=== PATIENT | female | born 1985 | race Caucasian/White ===

== ENCOUNTER 2017-01-31 22:28 | Inpatient (IN) | payer OTHER ==
[~2017-01-31] VITALS: Ht 157.5 cm; Wt 54.4 kg
[~2017-01-31 22:28] MED LIST: BANZ400T PO; BENZ1TAB PO; CLOB1SUS PO; DEPA250T2 PO; DOCU1CAP39 PO; HALO10 PO; LAMO100 PO; LEVE500 PO; LEVO PO; LORA2CON2 PO; OYST500T25 PO; SEASTAB2 PO; TAB-TAB PO
[2017-01-31 22:45] VITALS: BP 108/73; PULSE 106; RESP 20; O2SAT 96
[2017-01-31 23:05] VITALS: TEMP 98.3
[2017-01-31] MEDS ORDERED: SODIUM CHLOR 0.9% 1000 ML INJ 1,000 ML IV ONE ×2 (23:45)
--- NOTE | 2017-01-31 23:54 | RADRPT ---
EXAM DATE/TIME: 01/31/2017 23:27 [facility] COMPARISON: No previous studies available for comparison. INDICATIONS : Shortness of breath. MEDICAL HISTORY : None. SURGICAL HISTORY : None. ENCOUNTER: Initial ACUITY: 1 day PAIN SCORE: Non-responsive. LOCATION: Bilateral chest FINDINGS: There appears to be mild parenchymal opacity in the lung bases. Accounting for rotation, cardiomedias tinal contours appear satisfactory. A wafer machine operator apparatus overlies the left chest. There is mod erate gaseous distention of colon which extends into the subdiaphragmatic region on the right. CONCLUSION: Mild basilar parenchymal opacities Irving Chase MD on January 31, 2017 at 23:51 Board Certified Radiologist. This report was verified electronically.
--- NOTE | 2017-01-31 23:54 | RADRPT ---
EXAM DATE/TIME: 01/31/2017 23:27 [facility] COMPARISON: No previous studies available for comparison. INDICATIONS : Shortness of breath. MEDICAL HISTORY : None. SURGICAL HISTORY : None. ENCOUNTER: Initial ACUITY: 1 day PAIN SCORE: Non-responsive. LOCATION: Bilateral chest FINDINGS: There appears to be mild parenchymal opacity in the lung bases. Accounting for rotation, cardiomedias tinal contours appear satisfactory. A denture waxer apparatus overlies the left chest. There is mod erate gaseous distention of colon which extends into the subdiaphragmatic region on the right. CONCLUSION: Mild basilar parenchymal opacities Irving Chase MD on January 31, 2017 at 23:51 Board Certified Radiologist. This report was verified electronically.
--- NOTE | 2017-01-31 23:54 | RADRPT ---
EXAM DATE/TIME: 01/31/2017 23:27 [facility] COMPARISON: No previous studies available for comparison. INDICATIONS : Shortness of breath. MEDICAL HISTORY : None. SURGICAL HISTORY : None. ENCOUNTER: Initial ACUITY: 1 day PAIN SCORE: Non-responsive. LOCATION: Bilateral chest FINDINGS: There appears to be mild parenchymal opacity in the lung bases. Accounting for rotation, cardiomedias tinal contours appear satisfactory. A rnp apparatus overlies the left chest. There is mod erate gaseous distention of colon which extends into the subdiaphragmatic region on the right. CONCLUSION: Mild basilar parenchymal opacities Irving Chase MD on January 31, 2017 at 23:51 Board Certified Radiologist. This report was verified electronically.
[2017-02-01] VITALS (8 sets, daily range): BP systolic 87–105; BP diastolic 51–64; PULSE 92–118; RESP 16–28; TEMP 97.4–98.6; O2SAT 93–99
[2017-02-01] MEDS ORDERED: IOHEXOL 350 MG/ML 10 ML VIAL (for RAD DIAG) IVCONTRAST ONE ×2 (00:27)
[2017-02-01 00:41] LABS: BASOPHIL % 0.1 % (0.0-2.0); EOSINOPHIL % 0.4 % (0.0-4.0); HEMATOCRIT 34.1 % (35.0-46.0); HEMOGLOBIN 11.9 GM/DL (11.6-15.3); LYMPH % 10.3 % (9.0-44.0); LYMPHOCYTE # 0.9 TH/MM3 (1.0-4.8); MEAN CELL VOLUME 107.4 FL (80.0-100.0); MEAN CORPUSCULAR HEMOGLOBIN 37.6 PG (27.0-34.0); MONO % 28.7 % (0.0-8.0); MONOCYTE # 2.4 TH/MM3 (0-0.9); NEUT % 60.5 % (16.0-70.0); PLATELET COUNT 243 TH/MM3 (150-450); RED BLOOD COUNT 3.17 MIL/MM3 (4.00-5.30); RED CELL DISTRIBUTION WIDTH 14.7 % (11.6-17.2); WHITE BLOOD COUNT 8.3 TH/MM3 (4.0-11.0)
[2017-02-01 00:43] LABS: AMORPHOUS SEDIMENT, URINE RARE; BACTERIA, URINE MANY /hpf; BILIRUBIN, URINE NEG (NEG); BLOOD, URINE MOD (NEG); GLUCOSE,URINE NEG (NEG); KETONE, URINE TRACE mg/dL (NEG); NITRITE,URINE NEG (NEG); URINE COLOR DARK-YELLOW (YELLW/STRAW); URINE LEUKOCYTE ESTERASE LARGE (NEG)
[2017-02-01 00:58] LABS: LACTIC ACID SEPSIS PROTOCOL 2.5 mmol/L (0.4-2.0)
[2017-02-01 01:01] LABS: ALBUMIN 1.4 GM/DL (3.4-5.0); BICARBONATE 22.1 MEQ/L (21.0-32.0); CALCIUM 5.5 MG/DL (8.5-10.1); CREATININE 0.75 MG/DL (0.50-1.00); TOTAL BILIRUBIN ADULT 0.5 MG/DL (0.2-1.0); TOTAL PROTEIN 5.5 GM/DL (6.4-8.2)
--- NOTE | 2017-02-01 01:04 | RADRPT ---
EXAM DATE/TIME: 02/01/2017 00:25 [facility] COMPARISON: No previous studies available for comparison. INDICATIONS : Abdominal pain and distention. IV CONTRAST: 70 cc Omnipaque 350 (iohexol) IV ORAL CONTRAST: No oral contrast ingested. RADIATION DOSE: 11.33 CTDIvol (mGy) MEDICAL HISTORY : Non-responsive. SURGICAL HISTORY : Non-responsive. ENCOUNTER: Initial ACUITY: 1 day PAIN SCALE: Non-responsive LOCATION: abdomen TECHNIQUE: Volumetric scanning of the abdomen and pelvis was performed. Using automated exposure control and ad justment of the mA and/or kV according to patient size, radiation dose was kept as low as reasonably achievable to obtain optimal diagnostic quality images. DICOM format image data is available electro nically for review and comparison. FINDINGS: LOWER LUNGS: Chronic appearing consolidative changes in the posterior lung bases bilaterally, left worse than righ t. LIVER: Homogeneous density without lesion. There is no dilation of the biliary tree. No calcified gallston es. SPLEEN: Normal size without lesion. PANCREAS: Within normal limits. KIDNEYS: Normal in size and shape. There is no mass, stone or hydronephrosis. ADRENAL GLANDS: Within normal limits. VASCULAR: There is no aortic aneurysm. BOWEL/MESENTERY: Gastrostomy tube in good position. Colon is interposed between the liver and right diaphragm. The pro ximal colon is mildly dilated which may be a chronic appearance. No evidence of wall thickening. Grad ual tapering into the distal transverse region. Normal caliber distal colon. Small bowel is nondilate d. The appendix is seen and appears normal. ABDOMINAL WALL: Within normal limits. RETROPERITONEUM: There is no lymphadenopathy. BLADDER: Decompressed with Mix catheter. REPRODUCTIVE: Within normal limits. INGUINAL: There is no lymphadenopathy or hernia. MUSCULOSKELETAL: Prominent lumbar scoliosis CONCLUSION: Chronic consolidative changes in the lung bases. Mild proximal colonic distention may be a chronic appearance. No definite acute CT findings. Irving Chase MD on February 01, 2017 at 0:55 Board Certified Radiologist. This report was verified electronically.
[2017-02-01 01:05] LABS: CALCIUM-PROTEIN CORRECTED 6.2 MG/DL (8.5-10.1)
[2017-02-01] MEDS ORDERED: cefTRIAXone INJ 1,000 MG in SODIUM CHLORIDE 0.9% INJ 100 ML IV ONE ×4 (01:15)
[2017-02-01] MEDS ORDERED: SODIUM CHLOR 0.9% 1000 ML INJ 1,000 ML IV ONE ×2 (01:15)
[2017-02-01 01:18] LABS: BANDS 39 % (0-6); LYMPHOCYTES 12 % (9-44); MONOCYTES 24 % (0-8); MYELOCYTES 1 % (0-0); NEUTROPHIL # MANUAL DIFF 5.1 TH/MM3 (1.8-7.7); POLYS (SEG NEUTROPHILS) 22 % (16-70)
[2017-02-01 01:20] LABS: TOXIC VACUOLATION PRESENT (NONE SEEN)
[2017-02-01] MEDS ORDERED: NALOXONE HCL 0.4 MG/ML AMP IV PUSH PRN ×2 (01:45)
[2017-02-01] MEDS ORDERED: LACTULOSE SYRUP 20 GM/30 ML CUP PO PRN ×2 (01:45)
[2017-02-01] MEDS ORDERED: BISACODYL 10 MG SUPP RECTAL PRN ×2 (01:45)
[2017-02-01] MEDS ORDERED: ONDANSETRON HCL 4 MG/2 ML VIAL IVP PRN ×2 (01:45)
[2017-02-01] MEDS ORDERED: SODIUM CHLORIDE 0.9% FLUSH 10 ML FLUSH IV FLUSH PRN ×2 (01:45)
[2017-02-01] MEDS ORDERED: SENNOSIDES 8.6 MG TAB PO PRN ×2 (01:45)
[2017-02-01] MEDS ORDERED: MAGNESIUM HYDROXIDE SUSP 30 ML CUP PO PRN ×2 (01:45)
--- NOTE | 2017-02-01 01:53 | PD ---
HPI Chief Complaint: Respiratory Symptoms Time Seen by Provider: 23:05 Travel History International Travel<30 days: No Contact w/Intl Traveler<30days: No Traveled to known affect area: No History of Present Illness HPI 31-year-old female multiple medical problems idiopathic mental retardation arrives from [facility] due to edema. Chaperoned reports the patient has chronic edema however slightly worse and now involving the arms. He evidently the work of breathing was increased as well and a tightness in the abdomen was observed by staff first noticed 3 days prior. Patient is nonverbal limiting history. PFSH Past Medical History Developmental Delay: Yes (PROFOUND INTELLECTUAL DISABILITY) Diminished Hearing: No Musculoskeletal: Yes (BURITIS R ELBOW, PATELLAR SUBLUX) Neurologic: Yes (MR,) Psychiatric: Yes (BEHAVIORAL, IMPULSE CONTROL DISORDER) Seizures: Yes ?: Not Past Surgical History Oral Surgery: Yes Other Surgery: Yes (G TUBE) Social History Alcohol Use: No Tobacco Use: No Substance Use: No Allergies-Medications (Allergen,Severity, Reaction): Coded Allergies: nitrofurantoin (Unverified Allergy, Unknown, 01/31/17) Reported Meds & Prescriptions Reported Meds & Active Scripts Active Reported Banzel (Rufinamide) 400 Mg Tab 400 Mg PO Oyster Shell 500 Mg Tab 500 Mg PO DAILY Multivitamin (Multivitamins) 1 Tab Tab 1 Tab PO DAILY Lorazepam 2 Mg/Ml Con 0.5 Ml PO Seasonique (Levonorgestrel-Ethinyl Estradi) Tab 1 Tab PO DAILY Carnitor (Levocarnitine) 1 Gm/10 Ml Doreen 2 Ml PO TID Lamictal (Lamotrigine) 100 Mg Tab 200 Mg PO BID Keppra (Levetriacetam) 500 Mg Tab 2,000 Mg PO BID Haldol (Haloperidol) 10 Mg Tab 20 Mg PO HS Colace 100 Mg Cap (Docusate Sodium) 100 Mg Cap 100 Mg PO HS Depakote 250 mg (Divalproex Sodium) 250 Mg Tab 3 Tab PO TID Onfi (Clobazam) 2.5 Mg/Ml Ruthy 15 Mg PO BID Cogentin (Benztropine Mesylate) 2 Mg Tab 2 Mg PO HS Review of Systems ROS Limitations: Clinical Condition Physical Exam Narrative GENERAL: 31-year-old female nonverbal well-nourished SKIN: Warm and dry. HEAD: Atraumatic. Normocephalic. EYES: Pupils equal and round. No scleral icterus. No injection or drainage. ENT: No nasal bleeding or discharge. Mucous membranes pink and moist. NECK: Trachea midline. No JVD. CARDIOVASCULAR: Regular rate and rhythm. RESPIRATORY: No accessory muscle use. Clear to auscultation. Breath sounds equal bilaterally. GASTROINTESTINAL: Abdomen is distended. There is no grimacing with palpation. MUSCULOSKELETAL: Extremities without clubbing, cyanosis, or edema. No obvious deformities. NEUROLOGICAL: Patient's eyes are open. She is nonverbal. She does not respond to tactile or auditory symptoms. PSYCHIATRIC: Unable to assess. Data Data Last Documented VS Vital Signs Date Time Temp Pulse Resp B/P (MAP) Pulse Ox O2 Delivery O2 Flow Rate FiO2 02/01/17 00:33 106 18 101/59 (73) 97 Nasal Cannula 3.00 01/31/17 23:05 98.3 Vital signs reviewed Orders Orders Complete Blood Count With Diff (01/31/17 22:59) Comprehensive Metabolic Panel (01/31/17 22:59) Lactic Acid Sepsis Protocol (01/31/17 22:59) Blood Culture (01/31/17 22:59) Iv Access Insert/Monitor (01/31/17 22:59) Oxygen Administration (01/31/17 22:59) Oximetry (01/31/17 22:59) Blood Glucose (01/31/17 22:59) Chest, Single Ap (01/31/17 ) ^ Patient Temperature (01/31/17 23:05) Urinalysis - C+S If Indicated (01/31/17 23:05) Ct Abd/Pel W Iv Contrast(Rout) (01/31/17 23:05) Ed Urine Pregnancytest Poc (01/31/17 23:26) Sodium Chlor 0.9% 1000 Ml Inj (Ns 1000 M (01/31/17 23:45) Urinary Catheter Insert/Apply (02/01/17 00:00) Iohexol 350 Inj (Omnipaque 350 Inj) (02/01/17 00:27) Urine Culture (01/31/17 23:54) Ceftriaxone Inj (Rocephin Inj) (02/01/17 01:15) Sodium Chlor 0.9% 1000 Ml Inj (Ns 1000 M (02/01/17 01:15) Admit Order (Ed Use Only) (02/01/17 ) Instrument Lens Grinder / Telemetry ULI.Q8H (02/01/17 01:43) Vital Signs (Adult) Q4H (02/01/17 01:43) Activity Bed Rest (02/01/17 01:43) Piperacil-Tazo 3.375 Gm Premix (Zosyn 3. (02/01/17 01:45) Calcium Gluconate Inj (Calcium Gluconate (02/01/17 01:45) Vitamin D, 25-Hydroxy (02/01/17 01:43) Us Kidney/Renal/Bladder (02/01/17 ) Admit To Inpatient (02/01/17 ) Vital Signs (Adult) Q4H (02/01/17 01:43) Activity Oob With Assistance (02/01/17 01:43) Diet Regular Basic (02/01/17 Breakfast) Sodium Chlor 0.9% 1000 Ml Inj (Ns 1000 M (02/01/17 01:43) Sodium Chloride 0.9% Flush (Ns Flush) (02/01/17 01:45) Sodium Chloride 0.9% Flush (Ns Flush) (02/01/17 09:00) Ondansetron Inj (Zofran Inj) (02/01/17 01:45) Comprehensive Metabolic Panel (02/02/17 06:00) Complete Blood Count With Diff (02/02/17 06:00) Case Management Consult (02/01/17 01:43) Scd Bilateral/Knee High ULI.BID (02/01/17 01:43) Naloxone Inj (Narcan Inj) (02/01/17 01:45) Docusate Sodium-Senna (Emilee-Colace) (02/01/17 09:00) Magnesium Hydroxide Liq (Milk Of Magnesi (02/01/17 01:45) Sennosides (Senokot) (02/01/17 01:45) Bisacodyl Supp (Dulcolax Supp) (02/01/17 01:45) Lactulose Liq (Lactulose Liq) (02/01/17 01:45) Inpatient Certification (02/01/17 ) Labs Laboratory Tests Test 01/31/17 23:54 White Blood Count 8.3 TH/MM3 Red Blood Count 3.17 MIL/MM3 Hemoglobin 11.9 GM/DL Hematocrit 34.1 % Mean Corpuscular Volume 107.4 FL Mean Corpuscular Hemoglobin 37.6 PG Mean Corpuscular Hemoglobin Concent 35.0 % Red Cell Distribution Width 14.7 % Platelet Count 243 TH/MM3 Mean Platelet Volume 10.0 FL Neutrophils (%) (Auto) 60.5 % Lymphocytes (%) (Auto) 10.3 % Monocytes (%) (Auto) 28.7 % Eosinophils (%) (Auto) 0.4 % Basophils (%) (Auto) 0.1 % Neutrophils # (Auto) 5.0 TH/MM3 Lymphocytes # (Auto) 0.9 TH/MM3 Monocytes # (Auto) 2.4 TH/MM3 Eosinophils # (Auto) 0.0 TH/MM3 Basophils # (Auto) 0.0 TH/MM3 CBC Comment AUTO DIFF Differential Total Cells Counted 100 Neutrophils % (Manual) 22 % Band Neutrophils % 39 % Lymphocytes % 12 % Monocytes % 24 % Eosinophils % 2 % Neutrophils # (Manual) 5.1 TH/MM3 Myelocytes 1 % Differential Comment FINAL DIFF MANUAL Toxic Vacuolation PRESENT Platelet Estimate NORMAL Platelet Morphology Comment ENLARGED Urine Color DARK-YELLOW Urine Turbidity CLOUDY Urine pH 6.0 Urine Specific [place] 1.023 Urine Protein 100 mg/dL Urine Glucose (UA) NEG mg/dL Urine Ketones TRACE mg/dL Urine Occult Blood MOD Urine Nitrite NEG Urine Bilirubin NEG Urine Urobilinogen 2.0 MG/DL Urine Leukocyte Esterase LARGE Urine RBC 103 /hpf Urine WBC /hpf Urine Amorphous Sediment RARE Urine Bacteria MANY /hpf Microscopic Urinalysis Comment CATH-CULTURE IND Blood Urea Nitrogen 20 MG/DL Creatinine 0.75 MG/DL Random Glucose 91 MG/DL Total Protein 5.5 GM/DL Albumin 1.4 GM/DL Calcium Level 5.5 MG/DL Alkaline Phosphatase 60 U/L Aspartate Amino Transf (AST/SGOT) 58 U/L Alanine Aminotransferase (ALT/SGPT) 22 U/L Total Bilirubin 0.5 MG/DL Sodium Level 136 MEQ/L Potassium Level 3.6 MEQ/L Chloride Level 106 MEQ/L Carbon Dioxide Level 22.1 MEQ/L Anion Gap 8 MEQ/L Estimat Glomerular Filtration Rate 91 ML/MIN Lactic Acid Level 2.5 mmol/L Protein Corrected Calcium 6.2 MG/DL [facility] Medical Decision Making Medical Screen Exam Complete: Yes Emergency Medical Condition: Yes Medical Record Reviewed: Yes Differential Diagnosis UTI, sepsis, obstruction, urinary retention Narrative Course CBC & BMP Diagram 01/31/17 23:54 Total Protein 5.5 L, Albumin 1.4 L, Calcium Level 5.5 *L, Alkaline Phosphatase 60, Aspartate Amino Transf (AST/SGOT) 58 H, Alanine Aminotransferase (ALT/SGPT) 22, Total Bilirubin 0.5 Band neutrophils 39% lactic acid 2.5 UA: UTI present Mix catheter placed and about 1500 cc of purulent brown urine was collected. Patient started on Rocephin. The patient is septic. She'll be admitted for antibiotics. Etiology of urinary retention unclear however it could be due to urinary tract infection. Discussed with Dr. Ontiveros. Sepsis Criteria SIRS Criteria (2 or more): Heart rate over 90, WBC > 16040, < 4000 or > 10% bands Sepsis Criteria (SIRS+source): Infect source susp/known Diagnosis Primary Impression: Sepsis Qualified Codes: A41.9 - Sepsis, unspecified organism Additional Impression: Urinary retention Admitting Information Admitting Physician Requests: Admit Jaxson Jones MD Feb 01, 2017 01:53
--- NOTE | 2017-02-01 02:06 | HHI.HP ---
[facility] Service [place] [facility] Primary Care Physician No Primary Care Physician Admission Diagnosis Sepsis, UTI, Urinary Retention Diagnoses: (1) Sepsis (2) Urinary retention Chief Complaint: Abdominal distention, decreased urinary output Travel History International Travel<30 Days: No Contact w/Intl Traveler <30 Da: No Traveled to Known Affected Are: No History of Present Illness Written by Sandrine Mckeon, acting as scribe for Dr. Ontiveros on 02/01/17 at 02:02. Spoke with the patient's caregiver who was at the patient's bedside. Lives at [place]. The patient wasn't acting "like herself". Abdomen was really hard. Fluid retention was noted by staff in arms. Increased work of breathing was also noted. Minimal urinary output; no stool output. No known decubitus. Patient is non-verbal and cannot participate in medical history taking Review of Systems ROS Limitations: Clinical Condition (unable to participate in history/nonverbal ) Past Family Social History Past Medical History Patient is non-verbal and cannot participate in medical history taking - obtained from facility chart Profound intellectual disability Behavioral/impulse control disorder Seizure disorder Constipation Self-injurious behaviors Conduct disorder Chronic blepharitis Dysmenorrhea Compound myoclonic astigmatism Severe chronic cystitis Past Surgical History Patient is non-verbal and cannot participate in medical history taking - obtained from EMR: G-tube placement . Reported Medications Reported Meds & Active Scripts Active Reported Banzel (Rufinamide) 400 Mg Tab 400 Mg PO Oyster Shell 500 Mg Tab 500 Mg PO DAILY Multivitamin (Multivitamins) 1 Tab Tab 1 Tab PO DAILY Lorazepam 2 Mg/Ml Con 0.5 Ml PO Seasonique (Levonorgestrel-Ethinyl Estradi) Tab 1 Tab PO DAILY Carnitor (Levocarnitine) 1 Gm/10 Ml Doreen 2 Ml PO TID Lamictal (Lamotrigine) 100 Mg Tab 200 Mg PO BID Keppra (Levetriacetam) 500 Mg Tab 2,000 Mg PO BID Haldol (Haloperidol) 10 Mg Tab 20 Mg PO HS Colace 100 Mg Cap (Docusate Sodium) 100 Mg Cap 100 Mg PO HS Depakote 250 mg (Divalproex Sodium) 250 Mg Tab 3 Tab PO TID Onfi (Clobazam) 2.5 Mg/Ml Ruthy 15 Mg PO BID Cogentin (Benztropine Mesylate) 2 Mg Tab 2 Mg PO HS . Allergies: Coded Allergies: nitrofurantoin (Unverified Allergy, Unknown, 01/31/17) Active Ordered Medications Current Medications Sodium Chloride 1,000 ml @ 999 mls/hr BOLUS ONCE IV Last administered on 02/01 00:23; Start 01/31/17 at 23:45; Stop 02/01/17 at 00:45; Status DC Iohexol (Omnipaque 350 Inj) 70 ml STK-MED ONCE IVCONTRAST Last administered on 02/01/17 00:27; Start 02/01/17 at 00:27; Stop 02/01/17 at 00:28; Status DC Ceftriaxone Sodium 1000 mg/ Sodium Chloride 100 ml @ 200 mls/hr ONCE ONCE IV Last administered on 02/01/17 01:31; Start 02/01/17 at 01:15; Stop 02/01/17 at 01:44; Status DC Sodium Chloride 1,000 ml @ 999 mls/hr BOLUS ONCE IV Last administered on 02/01 01:31; Start 02/01/17 at 01:15; Stop 02/01/17 at 02:15; Status DC Piperacillin Sod/ Tazobactam Sod 50 ml @ 100 mls/hr Q6H IV ; Start 02/01/17 at 03:00 Calcium Gluconate 1 gm/Dextrose 110 ml @ 110 mls/hr ONCE ONCE IV ; Start 02/01 at 02:30; Stop 02/01/17 at 03:29; Status DC Sodium Chloride 1,000 ml @ 100 mls/hr Q10H IV ; Start 02/01/17 at 01:43 Sodium Chloride (NS Flush) 2 ml UNSCH PRN IV FLUSH FLUSH AFTER USING IV ACCESS ; Start 02/01/17 at 01:45 Sodium Chloride (NS Flush) 2 ml BID IV FLUSH ; Start 02/01/17 at 09:00 Ondansetron HCl (Zofran Inj) 4 mg Q6H PRN IVP NAUSEA OR VOMITING; Start at 01:45 Naloxone HCl (Narcan Inj) 0.4 mg UNSCH PRN IV PUSH SEE LABEL COMMENTS; Start 02/01/17 at 01:45 Senna/Docusate Sodium (Emilee-Colace) 1 tab BID PO ; Start 02/01/17 at 09:00 Magnesium Hydroxide (Milk Of Magnesia Liq) 30 ml Q12H PRN PO Mild constipation ; Start 02/01/17 at 01:45 Sennosides (Senokot) 17.2 mg Q12H PRN PO Moderate constipation; Start 02/01/17 at 01:45 Bisacodyl (Dulcolax Supp) 10 mg DAILY PRN RECTAL SEVERE CONSITIPATION; Start 02/01/17 at 01:45 Lactulose (Lactulose Liq) 30 ml DAILY PRN PO SEVERE CONSITIPATION; Start at 01:45 . Family History Patient is non-verbal and cannot participate in medical history taking - unable to obtain . Social History Patient is non-verbal and cannot participate in medical history taking - unable to obtain . Physical Exam Vital Signs Vital Signs Date Time Temp Pulse Resp B/P (MAP) Pulse Ox O2 Delivery O2 Flow Rate FiO2 02/01/17 00:33 106 18 101/59 (73) 97 Nasal Cannula 3.00 02/01/17 00:00 99 Nasal Cannula 3.00 01/31/17 23:59 99 Nasal Cannula 3.00 01/31/17 23:05 98.3 01/31/17 22:45 106 20 108/73 (85) 96 01/31/17 22:45 20 97 Nasal Cannula 3.00 Physical Exam GENERAL: This is a nonverbal, chronically-ill appearing patient, in no apparent distress. SKIN: No rashes, ecchymoses or lesions. Cool and dry. HEAD: Atraumatic. Normocephalic. EYES: No scleral icterus. No injection or drainage. ENT: Nose without bleeding, purulent drainage. NECK: Trachea midline. No JVD or lymphadenopathy. CARDIOVASCULAR: Regular rate and rhythm without murmurs, gallops, or rubs. RESPIRATORY: Clear to auscultation. Breath sounds equal bilaterally. No wheezes , rales, or rhonchi. GASTROINTESTINAL: Abdomen soft, non-tender, nondistended. No guarding. MUSCULOSKELETAL: Extremities without clubbing, cyanosis, or edema. No calf tenderness. NEUROLOGICAL: Awake and alert. Motor and sensory grossly within normal limits. Normal speech. . Laboratory Laboratory Tests Test 01/31/17 23:54 White Blood Count 8.3 Red Blood Count 3.17 Hemoglobin 11.9 Hematocrit 34.1 Mean Corpuscular Volume 107.4 Mean Corpuscular Hemoglobin 37.6 Mean Corpuscular Hemoglobin Concent 35.0 Red Cell Distribution Width 14.7 Platelet Count 243 Mean Platelet Volume 10.0 Neutrophils (%) (Auto) 60.5 Lymphocytes (%) (Auto) 10.3 Monocytes (%) (Auto) 28.7 Eosinophils (%) (Auto) 0.4 Basophils (%) (Auto) 0.1 Neutrophils # (Auto) 5.0 Lymphocytes # (Auto) 0.9 Monocytes # (Auto) 2.4 Eosinophils # (Auto) 0.0 Basophils # (Auto) 0.0 CBC Comment AUTO DIFF Differential Total Cells Counted 100 Neutrophils % (Manual) 22 Band Neutrophils % 39 Lymphocytes % 12 Monocytes % 24 Eosinophils % 2 Neutrophils # (Manual) 5.1 Myelocytes 1 Differential Comment FINAL DIFF MANUAL Toxic Vacuolation PRESENT Platelet Estimate NORMAL Platelet Morphology Comment ENLARGED Urine Color DARK-YELLOW Urine Turbidity CLOUDY Urine pH 6.0 Urine Specific Starlight 1.023 Urine Protein 100 Urine Glucose (UA) NEG Urine Ketones TRACE Urine Occult Blood MOD Urine Nitrite NEG Urine Bilirubin NEG Urine Urobilinogen 2.0 Urine Leukocyte Esterase LARGE Urine RBC 103 Urine WBC Urine Amorphous Sediment RARE Urine Bacteria MANY Microscopic Urinalysis Comment CATH-CULTURE IND Blood Urea Nitrogen 20 Creatinine 0.75 Random Glucose 91 Total Protein 5.5 Albumin 1.4 Calcium Level 5.5 Alkaline Phosphatase 60 Aspartate Amino Transf (AST/SGOT) 58 Alanine Aminotransferase (ALT/SGPT) 22 Total Bilirubin 0.5 Sodium Level 136 Potassium Level 3.6 Chloride Level 106 Carbon Dioxide Level 22.1 Anion Gap 8 Estimat Glomerular Filtration Rate 91 Lactic Acid Level 2.5 Protein Corrected Calcium 6.2 Date/Time Source Procedure Growth Status 01/31/17 23:54 Blood Peripheral Aerobic Blood Culture Pending Received 01/31/17 23:54 Blood Peripheral Anaerobic Blood Culture Pending Received 01/31/17 23:54 Urine Catheterized Urine Urine Culture Pending Received Result Diagram: 01/31/17 1144 01/31/17 4 Imaging Last Impressions Abdomen/Pelvis CT 01/31/175 Signed Impressions: Service Date/Time: Wednesday, February 01, 2017 00:25 - CONCLUSION: Chronic consolidative changes in the lung bases. Mild proximal colonic distention may be a chronic appearance. No definite acute CT findings. Irving Chase MD Chest X-Ray 01/31/17 0000 Signed Impressions: Service Date/Time: Tuesday, January 31, 2017 23:27 - CONCLUSION: Mild basilar parenchymal opacities Irving Chase MD . Caprini VTE Risk Assessment Caprini VTE Risk Assessment: Mod/High Risk (score >= 2) Caprini Risk Assessment Model Point Value = 1 Point Value = 2 Point Value = 3 Point Value = 5 Age 41-60 Minor surgery BMI > 25 kg/m2 Swollen legs Varicose veins or History of unexplained or recurrent spontaneous Oral contraceptives or hormone replacement Sepsis (< 1 month) Serious lung disease, including pneumonia (< 1 month) Abnormal pulmonary function Acute myocardial infarction Congestive heart failure (< 1 month) History of inflammatory bowel disease Medical patient at bed rest Age 61-74 Arthroscopic surgery Major open surgery (> 45 min) Laparoscopic surgery (> 45 min) Malignancy Confined to bed (> 72 hours) Immobilizing plaster cast Central venous access Age >= 75 History of VTE Family history of VTE Factor V Leiden Prothrombin [id number] Lupus anticoagulant Anticardiolipin antibodies Elevated serum homocysteine Heparin-induced thrombocytopenia Other congenital or acquired thrombophilia Stroke (< 1 month) Elective arthroplasty Hip, pelvis, or leg fracture Acute spinal cord injury (< 1 month) Prophylaxis Regimen Total Risk Factor Score Risk Level Prophylaxis Regimen 0-1 Low Early ambulation 2 Moderate Order ONE of the following: *Sequential Compression Device (SCD) *Heparin 5000 units SQ BID 3-4 Higher Order ONE of the following medications: *Heparin 5000 units SQ TID *Enoxaparin/Lovenox 40 mg SQ daily (WT < 150 kg, CrCl > 30 mL/min) *Enoxaparin/Lovenox 30 mg SQ daily (WT < 150 kg, CrCl > 10-29 mL/min) *Enoxaparin/Lovenox 30 mg SQ BID (WT < 150 kg, CrCl > 30 mL/min) AND/OR *Sequential Compression Device (SCD) 5 or more Highest Order ONE of the following medications: *Heparin 5000 units SQ TID (Preferred with Epidurals) *Enoxaparin/Lovenox 40 mg SQ daily (WT < 150 kg, CrCl > 30 mL/min) *Enoxaparin/Lovenox 30 mg SQ daily (WT < 150 kg, CrCl > 10-29 mL/min) *Enoxaparin/Lovenox 30 mg SQ BID (WT < 150 kg, CrCl > 30 mL/min) AND *Sequential Compression Device (SCD) Assessment and Plan Problem List: (1) Sepsis ICD Code: A41.9 - Sepsis, unspecified organism Status: Acute (2) Urinary retention ICD Code: R33.9 - Retention of urine, unspecified Status: Acute Assessment and Plan 31 y/o female with profound intellectual disability presented [facility] ED from [facility] for evaluation of diminished urinary output, peripheral edema, and abdominal distention. Sepsis Urinary retention UTI - UA consistent with UTI - Lactic Acid 2.5; Bandemia - bands 39%, patient with tachycardia - meets sepsis criteria - Antibiotics: Zosyn 3.375 g IV every 6 hours - monitor temperature and VS q4h - check liver/kidney/bladder scan to evaluate internal structures - IVF hydration with NS at 100 cc/hr - follow CBC results Tube feedings - NPO - verbally ordered - Jevity 1.5 at 45 cc/hr - verbally ordered - Free H2O flushes 120 ccs q4h - consult business associate - verbally ordered Constipation - Emilee-colace 1 tablet BID p.o. - PRN Sennosides, MOM, Bisacodyl, Lactulose for constipation DVT prophylaxis - SCDs awaiting completion of medication reconciliation to reconcile home medications . Discussed Condition With ER physician and caregiver at the bedside Physician Certification 2 Midnight Certification Type: Admission for Inpatient Services Order for Inpatient Services The services are ordered in accordance with Medicare regulations or non- Medicare payer requirements, as applicable. In the case of services not specified as inpatient-only, they are appropriately provided as inpatient services in accordance with the 2-midnight benchmark. Estimated LOS (days): 3 days is the estimated time the patient will need to remain in the hospital, assuming treatment plan goals are met and no additional complications. Post-Hospital Plan: [facility] Notes: This note was transcribed by rodrigo Mckeon. I, Dr. Alonzo Ontiveros personally performed the history, physical exam, and medical decision making; and confirmed the accuracy of the information in the transcribed note. Authenticated by Dr. Alonzo Ontiveros on 02/01/17 at 07:15. Problem Qualifiers (1) Sepsis: Qualified Codes: A41.9 - Sepsis, unspecified organism Sandrine Mckeon Feb 01, 2017 02:06 Alonzo Ontiveros MD Feb 01, 2017 07:16
[2017-02-01] MEDS ORDERED: CALCIUM GLUCONATE INJ 1 GM in DEXTROSE 5% IN WATER 100ML INJ 100 ML IV ONE ×4 (02:30)
[2017-02-01] MEDS: SODIUM CHLOR 0.9% 1000 ML INJ 1,000 ML IV SCH ×6 (03:53→21:43)
[2017-02-01] MEDS: PIPERACIL-TAZO 3.375 GM PREMIX 50 ML IV SCH ×8 (03:53→23:58)
[2017-02-01] MEDS ORDERED: FAMO40S PO ×2 (04:48)
[2017-02-01] MEDS ORDERED: FOLI400T PO ×2 (04:48)
[2017-02-01] MEDS ORDERED: GLYC1TAB17 PO ×2 (04:48)
[2017-02-01] MEDS ORDERED: LEVO1SOL G-TUBE ×2 (04:48)
[2017-02-01] MEDS ORDERED: SEASTAB2 PO ×2 (04:48)
[2017-02-01] MEDS ORDERED: MULT1LIQ9 PO ×2 (04:48)
[2017-02-01] MEDS ORDERED: LAMI200T PO ×2 (04:48)
[2017-02-01] MEDS ORDERED: FERR300S PO ×2 (04:48)
[2017-02-01] MEDS ORDERED: [UNRECOGNIZED DRUG - CODE] PO ×2 (04:48)
[2017-02-01] MEDS ORDERED: LACT10SO5 G-TUBE ×2 (04:48)
[2017-02-01] MEDS ORDERED: ONFI10TA PO ×2 (04:48)
[2017-02-01] MEDS ORDERED: LEVE500S PO ×2 (04:48)
[2017-02-01] MEDS ORDERED: VITA10002 PO ×2 (04:48)
[2017-02-01] MEDS ORDERED: VALP250 PO ×2 (04:48)
[2017-02-01] MEDS: DIAZEPAM 5 MG TAB PO SCH ×4 (05:55→15:57)
[2017-02-01] MEDS: GLYCOPYRROLATE 1 MG TAB PO SCH ×4 (09:00→23:20)
[2017-02-01] MEDS: BIRTH CONTROL PO SCH ×2 (09:00)
[2017-02-01] MEDS: LACTULOSE SYRUP 20 GM/30 ML CUP G-TUBE SCH ×4 (09:38→23:21)
[2017-02-01] MEDS: DOCUSATE SODIUM 100 MG/10 ML UDC PO SCH ×2 (09:39)
[2017-02-01] MEDS: FERROUS SULFATE 300 MG /5ML UDC PO SCH ×2 (09:39)
[2017-02-01] MEDS: levETIRAcetam 500 MG/5 ML UDC PO SCH ×4 (09:41→23:19)
[2017-02-01] MEDS: lamoTRIgine 100 MG TAB PO SCH ×4 (09:41→23:19)
[2017-02-01] MEDS: CHOLECALCIFEROL (VIT D3) 1000 UNIT TAB PO SCH ×2 (09:41)
[2017-02-01] MEDS: DOCUSATE SODIUM 50 MG/SENNA 8.6 MG TAB PO SCH ×4 (09:41→23:19)
[2017-02-01] MEDS: SODIUM CHLORIDE 0.9% FLUSH 10 ML FLUSH IV FLUSH SCH ×4 (09:43→23:59)
--- NOTE | 2017-02-01 09:47 | RADRPT ---
EXAM DATE/TIME: 02/01/2017 08:22 [facility] COMPARISON: No previous studies available for comparison. INDICATIONS : Obstruction. MEDICAL HISTORY : Profound intellectual disability. Seizures. Right elbow bursitis. SURGICAL HISTORY : Gtube. ENCOUNTER: Subsequent ACUITY: 1 day PAIN SCORE: Nonresponsive. LOCATION: Bilateral flank MEASUREMENTS: RIGHT KIDNEY: 10.1 x 4.0 x 6.0 cm LEFT KIDNEY: 10.9 x 4.8 x 5.5 cm FINDINGS: RIGHT KIDNEY: Renal cortex is normal in thickness and echotexture. No hydronephrosis, stone, or mass. LEFT KIDNEY: Renal cortex is normal in thickness and echotexture. No hydronephrosis, stone, or mass. BLADDER: Within normal limits given the degree of distension. CONCLUSION: Negative for obstruction. Thad Calloway MD FACR on February 01, 2017 at 9:45 Board Certified Radiologist. This report was verified electronically.
[2017-02-01] MEDS: FAMOTIDINE 40 MG/5 ML LIQ 50 ML BTL PO SCH ×2 (10:04)
[2017-02-01] MEDS: VALPROIC ACID 250 MG CAP PO SCH ×6 (12:06→17:39)
--- NOTE | 2017-02-01 16:12 | HHI.PR ---
Addendum to Inpatient Note Addendum Reason: Additional Documentation Additional Information Pt is non verbal. Family at bedside and one family member able to translate for parents no questions at this time. pt in bed, non verbal, does stare and makes noise at times, no movement of extremities, HR rrr, lungs are clear, abdominal binder in place. abdomen, a bit tense however no guarding or rebound noted. mayfield in place Urinary retention UTI - UA consistent with UTI and urine growing gram neg rods - Lactic Acid 2.5; Bandemia - bands 39%, patient with tachycardia - meets sepsis criteria - continue Antibiotics: Zosyn 3.375 g IV every 6 hours - monitor temperature and VS q4h - liver/kidney/bladder scan reviewed. - IVF hydration with NS at 100 cc/hr - follow CBC results Tube feedings - NPO - verbally ordered - Jevity 1.5 at 45 cc/hr - verbally ordered - Free H2O flushes 120 ccs q4h - RD following. appreciate recs Constipation - Emilee-colace 1 tablet BID . - PRN Sennosides, MOM, Bisacodyl, Lactulose for constipation Breann Davidson MD Feb 01, 2017 16:12
[2017-02-02] VITALS (8 sets, daily range): BP systolic 91–117; BP diastolic 51–79; PULSE 80–101; RESP 16–20; TEMP 97.6–98.5; O2SAT 93–97
[2017-02-02] MEDS: PIPERACIL-TAZO 3.375 GM PREMIX 50 ML IV SCH ×4 (03:33→10:23)
[2017-02-02] MEDS: DIAZEPAM 5 MG TAB PO SCH ×8 (05:48→21:20)
[2017-02-02] MEDS: DOCUSATE SODIUM 100 MG/10 ML UDC PO SCH ×2 (09:00)
[2017-02-02] MEDS: SODIUM CHLORIDE 0.9% FLUSH 10 ML FLUSH IV FLUSH SCH ×4 (09:00→21:21)
[2017-02-02] MEDS: VALPROIC ACID 250 MG CAP PO SCH ×6 (09:00→18:09)
[2017-02-02] MEDS: GLYCOPYRROLATE 1 MG TAB PO SCH ×4 (09:00→21:20)
[2017-02-02] MEDS: BIRTH CONTROL PO SCH ×2 (09:00)
[2017-02-02 09:16] LABS: AUTOMATED NEUTROPHIL # 5.2 TH/MM3 (1.8-7.7); BASOPHIL % 0.2 % (0.0-2.0); EOSINOPHIL # 0.2 TH/MM3 (0-0.4); EOSINOPHIL % 1.9 % (0.0-4.0); HEMATOCRIT 35.5 % (35.0-46.0); HEMOGLOBIN 12.2 GM/DL (11.6-15.3); LYMPH % 18.4 % (9.0-44.0); LYMPHOCYTE # 1.7 TH/MM3 (1.0-4.8); MEAN CELL VOLUME 110.1 FL (80.0-100.0); MEAN CORPUSCULAR HEMOGLOBIN 37.7 PG (27.0-34.0); MEAN CORPUSCULAR HGB CONC 34.3 % (32.0-36.0); MEAN PLATELET VOLUME 9.3 FL (7.0-11.0); MONO % 22.6 % (0.0-8.0); MONOCYTE # 2.1 TH/MM3 (0-0.9); NEUT % 56.9 % (16.0-70.0); PLATELET COUNT 250 TH/MM3 (150-450); RED BLOOD COUNT 3.23 MIL/MM3 (4.00-5.30); RED CELL DISTRIBUTION WIDTH 14.9 % (11.6-17.2); WHITE BLOOD COUNT 9.2 TH/MM3 (4.0-11.0)
[2017-02-02 09:59] LABS: BANDS 19 % (0-6); LYMPHOCYTES 13 % (9-44); MONOCYTES 13 % (0-8); NEUTROPHIL # MANUAL DIFF 6.7 TH/MM3 (1.8-7.7); POLYS (SEG NEUTROPHILS) 54 % (16-70); TARGET CELLS 1+ (NORMAL)
[2017-02-02] MEDS: LACTULOSE SYRUP 20 GM/30 ML CUP G-TUBE SCH ×4 (10:29→21:21)
[2017-02-02] MEDS: FERROUS SULFATE 300 MG /5ML UDC PO SCH ×2 (10:29)
[2017-02-02] MEDS: lamoTRIgine 100 MG TAB PO SCH ×4 (10:29→21:20)
[2017-02-02] MEDS: CHOLECALCIFEROL (VIT D3) 1000 UNIT TAB PO SCH ×4 (10:29→10:43)
[2017-02-02] MEDS: DOCUSATE SODIUM 50 MG/SENNA 8.6 MG TAB PO SCH ×4 (10:29→21:00)
[2017-02-02] MEDS: levETIRAcetam 500 MG/5 ML UDC PO SCH ×4 (10:30→21:21)
[2017-02-02] MEDS: FAMOTIDINE 40 MG/5 ML LIQ 50 ML BTL PO SCH ×2 (10:30)
[2017-02-02 11:07] LABS: ALKALINE PHOSPHATASE 107 U/L (45-117); ALT (GPT) 29 U/L (10-53); AST (GOT) 80 U/L (15-37); BICARBONATE 27.6 MEQ/L (21.0-32.0); BLOOD UREA NITROGEN 15 MG/DL (7-18); CALCIUM 8.2 MG/DL (8.5-10.1); CHLORIDE 102 MEQ/L (98-107); CREATININE 0.85 MG/DL (0.50-1.00); GLOMERULAR FILTRATION RATE 79 ML/MIN (>89); GLUCOSE,RANDOM 52 MG/DL (74-106); SODIUM (NA) 139 MEQ/L (136-145); TOTAL BILIRUBIN ADULT 0.7 MG/DL (0.2-1.0); TOTAL PROTEIN 7.6 GM/DL (6.4-8.2)
[2017-02-02] MEDS ORDERED: SENNOSIDES SYRUP 8.8 MG/5 ML CUP PO ONE ×2 (14:30)
--- NOTE | 2017-02-02 14:34 | HHI.PR ---
Subjective Remarks Patient continues nonverbal. No acute issues per nursing. Objective Vital Signs Date Time Temp Pulse Resp B/P (MAP) Pulse Ox O2 Delivery O2 Flow Rate FiO2 02/02/17 12:00 97.6 101 20 117/79 (92) 95 02/02/17 08:00 97.6 90 20 95/60 (72) 94 02/02/17 07:31 90 02/02/17 04:20 87 02/02/17 04:00 98.5 93 16 91/51 (64) 93 02/02/17 00:00 97.7 93 16 93 02/01/17 23:17 90/60 (70) 02/01/17 20:00 97.5 92 16 87/51 (63) 93 02/01/17 20:00 Room Air 02/01/17 16:00 97.4 99 28 96/57 (70) 99 02/01/17 16:00 97.7 111 22 105/64 (78) 96 I/O 02/01/17 02/01/17 02/01/17 02/02/17 02/02/17 02/02/17 07:00 15:00 23:00 07:00 15:00 23:00 Intake Total 2211 ml 52 ml Output Total 2050 ml 300 ml Balance 2211 ml -2050 ml -248 ml Intake Oral 0 ml IV Total 2211 ml 52 ml Output Urine Total 2050 ml 300 ml Result Diagram: 02/02/17 0706 02/02/17 0706 Imaging Last Impressions Renal Ultrasound 02/01/17 0000 Signed Impressions: Service Date/Time: Wednesday, February 01, 2017 08:22 - CONCLUSION: Negative for obstruction. Thad Calloway MD FACR Abdomen/Pelvis CT 01/31/17 4397 Signed Impressions: Service Date/Time: Wednesday, February 01, 2017 00:25 - CONCLUSION: Chronic consolidative changes in the lung bases. Mild proximal colonic distention may be a chronic appearance. No definite acute CT findings. Irving Chase MD Chest X-Ray 01/31/17 0000 Signed Impressions: Service Date/Time: Tuesday, January 31, 2017 23:27 - CONCLUSION: Mild basilar parenchymal opacities Irving Chase MD Objective Remarks GENERAL: Patient lying in bed. Appears comfortable. Nonverbal as before. SKIN: Warm and dry. HEAD: Normocephalic. EYES: No scleral icterus. No injection or drainage. NECK: Supple, trachea midline. CARDIOVASCULAR: Regular rate and rhythm without murmurs, gallops, or rubs. RESPIRATORY: Breath sounds equal bilaterally. No accessory muscle use. GASTROINTESTINAL: Abdomen soft, non-tender, nondistended. MUSCULOSKELETAL: No cyanosis, or edema. PEG tube without surrounding erythema or leakage. BACK: Nontender without obvious deformity. No CVA tenderness. A/P Assessment and Plan 02/02. Order labs, further workup for transaminitis. for Escherichia coli UTI, switch to cefuroxime. Continue Mix for urinary obstruction. We'll need urology consult at receiving facility. No bowel movement since admission. Order laxatives. Hyperglycemia. 31 y/o female with profound intellectual disability presented to ED from [facility] for evaluation of diminished urinary output, peripheral edema, and abdominal distention. //Sepsis //Urinary retention //Escherichia coli UTI - UA consistent with UTI - Lactic Acid 2.5; Bandemia - bands 39%, patient with tachycardia - meets sepsis criteria - Antibiotics: Zosyn 3.375 g IV every 6 hours--> switched to Rocephin. - monitor temperature and VS q4h -Renal ultrasound negative. - Discontinue IVF hydration with NS at 100 cc/hr - follow CBC results //Tube feedings - Continue nothing by mouth. - Jevity 1.5 at 45 cc/hr Free H2O flushes 120 ccs q4h - consult boatswains mate -continue on same regimen. Appreciate assistance. //Constipation - Emilee-colace 1 tablet BID p.o. - PRN Sennosides, MOM, Bisacodyl, Lactulose for constipation //Hypoglycemia. -Glucose 52 on 02/02. Possibly secondary to infection. Continue tube feeds. Continue to monitor. Start Accu-Cheks. //Transaminitis. -02/02 AST 80, increasing from 58 on admission. Ultrasound abdomen, CK, hepatitis profile ordered and pending. /Urinary obstruction. Patient will need to leave Mix in place for now. Recommend evaluation by urology at receiving facility. //Hypocalcemia on admission. //Vitamin D deficiency Continue by mouth vitamin D. DVT prophylaxis - SCDs Discharge Planning Likely discharge tomorrow if stable. Alonzo Ontiveros MD Feb 02, 2017 14:34
[2017-02-02] MEDS: SODIUM CHLOR 0.9% 1000 ML INJ 1,000 ML IV SCH ×2 (15:12)
[2017-02-02] MEDS ORDERED: THIAMINE HCL 100 MG TAB PO ONE ×2 (16:00)
[2017-02-02] MEDS: levOCARNitine 10% ORAL SOLN 118 ML BTL G-TUBE SCH ×2 (18:09)
--- NOTE | 2017-02-02 21:17 | RADRPT ---
EXAM DATE/TIME: 02/02/2017 20:30 [facility] COMPARISON: CT ABDOMEN & PELVIS W CONTRAST, February 01, 2017, 0:25. INDICATIONS : Increased Bun and Creatinine. MEDICAL HISTORY : Profound intellectual disability. Seizures. Right elbow bursitis. SURGICAL HISTORY : Gtube. ENCOUNTER: Subsequent ACUITY: 1 day PAIN SCORE: Nonresponsive. LOCATION: Bilateral upper quadrant MEASUREMENTS: LIVER: 13.7 cm length COMMON DUCT: Non-visualized RIGHT KIDNEY: 10.5 x 4.4 x 5.4 cm SPLEEN: 7.6 cm length FINDINGS: Visualization is limited due to the patient not being cooperative. LIVER: Normal echotexture without focal lesion or ductal dilatation. Small pleural effusions were noted. COMMON DUCT: Not visualized. GALLBLADDER: The gallbladder is small in size and appears contracted. There is no evidence of cholelithiasis or pe richolecystic fluid. PANCREAS: The visualized portions are within normal limits. RIGHT KIDNEY: No hydronephrosis, stone or mass. SPLEEN: No focal lesion. CONCLUSION: 1. Limited suboptimal exam. 2. Small pleural effusions are noted. 3. The right kidney appear unremarkable with no hydronephrosis. Shaun Villela MD on February 02, 2017 at 21:12 Board Certified Radiologist. This report was verified electronically.
[2017-02-02] MEDS: CEFUROXIME AXETIL SUSP 250 MG/5 ML 50 ML BTL PO SCH ×2 (21:20)
[2017-02-03] VITALS (7 sets, daily range): BP systolic 91–110; BP diastolic 52–75; PULSE 65–91; RESP 17–20; TEMP 97.4–98.6; O2SAT 94–97
[2017-02-03] MEDS: DIAZEPAM 5 MG TAB PO SCH ×6 (05:53→21:00)
[2017-02-03 08:17] LABS: PROTHROMBIN TIME - PATIENT 10.8 SEC (9.8-11.6)
[2017-02-03] MEDS: BIRTH CONTROL PO SCH ×2 (09:00)
[2017-02-03] MEDS: SENNOSIDES SYRUP 8.8 MG/5 ML CUP PO SCH ×2 (09:00)
[2017-02-03 10:13] LABS: HEPATITIS A AB IGM NEGATIVE (NEGATIVE); HEPATITIS B SURFACE ANTIGEN NEGATIVE (NEGATIVE); HEPATITIS C AB IgG NEGATIVE (NEGATIVE)
[2017-02-03] MEDS: DOCUSATE SODIUM 50 MG/SENNA 8.6 MG TAB PO SCH ×4 (10:20→21:00)
[2017-02-03] MEDS: levOCARNitine 10% ORAL SOLN 118 ML BTL G-TUBE SCH ×6 (10:20→17:50)
[2017-02-03] MEDS: FERROUS SULFATE 300 MG /5ML UDC PO SCH ×2 (10:21)
[2017-02-03] MEDS: lamoTRIgine 100 MG TAB PO SCH ×4 (10:21→21:00)
[2017-02-03] MEDS: LACTULOSE SYRUP 20 GM/30 ML CUP G-TUBE SCH ×4 (10:21→21:00)
[2017-02-03] MEDS: GLYCOPYRROLATE 1 MG TAB PO SCH ×4 (10:21→21:01)
[2017-02-03] MEDS: DOCUSATE SODIUM 100 MG/10 ML UDC PO SCH ×2 (10:22)
[2017-02-03] MEDS: CHOLECALCIFEROL (VIT D3) 1000 UNIT TAB PO SCH ×2 (10:22)
[2017-02-03] MEDS: VALPROIC ACID 250 MG CAP PO SCH ×6 (10:22→17:51)
[2017-02-03] MEDS: SODIUM CHLORIDE 0.9% FLUSH 10 ML FLUSH IV FLUSH SCH ×4 (10:23→21:01)
[2017-02-03] MEDS: CEFUROXIME AXETIL SUSP 250 MG/5 ML 50 ML BTL PO SCH ×4 (11:00→21:01)
[2017-02-03] MEDS: levETIRAcetam 500 MG/5 ML UDC PO SCH ×4 (11:00→21:00)
--- NOTE | 2017-02-03 12:06 | HHI.PR ---
Subjective Remarks Appears at baseline. Appears tracking with eyes. VSS are stable. PEG tube is clogged, nurse was not able to flush. Will consult IR for eval. Objective Vitals Vital Signs Date Time Temp Pulse Resp B/P (MAP) Pulse Ox O2 Delivery O2 Flow Rate FiO2 02/03/17 08:22 98.4 87 18 101/62 (75) 97 02/03/17 07:53 85 02/03/17 04:00 98.5 83 20 91/58 (69) 95 02/03/17 00:00 Room Air 02/03/17 00:00 97.4 84 20 92/61 (71) 94 02/02/17 20:00 80 02/02/17 20:00 97.6 88 20 99/67 (78) 97 02/02/17 20:00 Room Air 02/02/17 16:00 98.1 86 20 109/68 (82) 97 I/O 02/02/17 02/02/17 02/02/17 02/03/17 02/03/17 02/03/17 07:00 15:00 23:00 07:00 15:00 23:00 Intake Total 52 ml Output Total 300 ml Balance -248 ml IV Total 52 ml Output Urine Total 300 ml # Voids 3 1 # Bowel Movements 1 2 Result Diagram: 02/02/1770502/02/17 0706 Imaging Last Impressions Liver Ultrasound 02/02/17 0000 Signed Impressions: Service Date/Time: February 20:30 - CONCLUSION: 1. Limited suboptimal exam. 2. Small pleural effusions are noted. 3. The right kidney appear unremarkable with no hydronephrosis. Shaun Villela MD Renal Ultrasound 02/01/17 0000 Signed Impressions: Service Date/Time: Wednesday, February 01, 2017 08:22 - CONCLUSION: Negative for obstruction. Thad Calloway MD FACR Abdomen/Pelvis CT 01/31/17 0158 Signed Impressions: Service Date/Time: Wednesday, February 01, 2017 00:25 - CONCLUSION: Chronic consolidative changes in the lung bases. Mild proximal colonic distention may be a chronic appearance. No definite acute CT findings. Irving Chase MD Chest X-Ray 01/31/17 0000 Signed Impressions: Service Date/Time: Tuesday, January 31, 2017 23:27 - CONCLUSION: Mild basilar parenchymal opacities Irving Chase MD Objective Remarks GENERAL: Patient lying in bed. Appears comfortable. Nonverbal as before. SKIN: Warm and dry. HEAD: Normocephalic. EYES: No scleral icterus. No injection or drainage. NECK: Supple, trachea midline. CARDIOVASCULAR: Regular rate and rhythm without murmurs, gallops, or rubs. RESPIRATORY: Breath sounds equal bilaterally. No accessory muscle use. GASTROINTESTINAL: Abdomen soft, non-tender, nondistended. MUSCULOSKELETAL: No cyanosis, or edema. PEG tube without surrounding erythema or leakage. BACK: Nontender without obvious deformity. No CVA tenderness. 02/02. Order labs, further workup for transaminitis. for Escherichia coli UTI, switch to cefuroxime. Continue Mix for urinary obstruction. We'll need urology consult at receiving facility. No bowel movement since admission. Order laxatives. Hyperglycemia. 31 y/o female with profound intellectual disability presented to ED from [facility] for evaluation of diminished urinary output, peripheral edema, and abdominal distention. Sepsis Urinary retention Escherichia coli UTI - UA consistent with UTI - Lactic Acid 2.5; Bandemia - bands 39%, patient with tachycardia - meets sepsis criteria - Antibiotics: Zosyn 3.375 g IV every 6 hours--> switched to Rocephin. - monitor temperature and VS q4h - One out of 4 cultures with coag-negative staph. This is contaminant. -Renal ultrasound negative. - Discontinue IVF hydration with NS at 100 cc/hr - follow CBC results Dysphagia , on Tube feedings 02/03/17 feeding tube is clogged, consult IR for evaluation. Nurse was not able to declog feeding tube. - Continue nothing by mouth. - Jevity 1.5 at 45 cc/hr Free H2O flushes 120 ccs q4h - consult gunnery/ordnance officer -continue on same regimen. Appreciate assistance. Constipation - Emilee-colace 1 tablet BID p.o. - PRN Sennosides, MOM, Bisacodyl, Lactulose for constipation Hypoglycemia. -Glucose 52 on 02/02. Possibly secondary to infection. Continue tube feeds. Continue to monitor. Start Accu-Cheks. Transaminitis. -02/02 AST 80, increasing from 58 on admission. Ultrasound abdomen, CK, hepatitis profile ordered and pending. Urinary obstruction. Patient will need to leave Mix in place for now. Recommend evaluation by urology at receiving facility. Hypocalcemia on admission. Vitamin D deficiency Continue by mouth vitamin D. DVT prophylaxis - SCDs Discharge Planning Likely discharge today later or tomorrow, PEG tube is clogged. IR to evaluate. A/P Problem List: (1) Sepsis ICD Code: A41.9 - Sepsis, unspecified organism Status: Acute (2) Urinary retention ICD Code: R33.9 - Retention of urine, unspecified Status: Acute Problem Qualifiers (1) Sepsis: Qualified Codes: A41.9 - Sepsis, unspecified organism Agustina Duval MD Feb 03, 2017 12:05
[2017-02-03] MEDS ORDERED: LORazepam 2 MG/ML VIAL ONE ×2 (15:55)
--- NOTE | 2017-02-03 16:17 | PD.RAD ---
Post Procedure Progress Note Pre Procedure Diagnosis: (1) Sepsis Post Procedure Diagnosis: (1) Sepsis Procedure Date: Feb 03, 2017 Supervising Radiologist: Victor Hugo Vasquez Proceduralist/Assist: Anu Uriarte, RT(R), Alexandria Suárez RT(R) Anesthesia: Local Plan of Activity Patient to Unit: Nursing Unit Patient Condition: Fair See PACS Report for procedural detail/treatment Feeding Tube Gastrostomy Exchange Victor Hugo Vasquez MD Feb 03, 2017 16:17
--- NOTE | 2017-02-03 16:50 | RADRPT ---
EXAM DATE/TIME: 02/03/2017 15:57 [facility] COMPARISON: No previous studies available for comparison. INDICATIONS : Patient with a history of clogged gastrostomy tube. MEDICAL HISTORY : Profound intellectual disability Seizure disorder Conduct disorder Chronic blepharitis SURGICAL HISTORY : G-tube placement ENCOUNTER: Initial ACUITY: 1 day PAIN SCORE: FLUORO TIME: 0.3 minutes IMAGE SERIES: 1 CONTRAST: 10 cc Visipaque (iodixanol) MEDICATION(S): 1.) 1 mg lorazepam (Ativan) IV DEVICE(S): 1.) 18 Kiswahili gastrostomy tube PROCEDURE : 1. Fluoroscopically guided gastrostomy tube exchange. 2. Conscious sedation with continuous EKG and oximetry monitoring. The risks, benefits and alternatives to the procedure were explained and verbal and written consent w as obtained. The site was prepped in sterile fashion. Full sterile technique was used, including ca p, mask, sterile gloves and gown and a large sterile sheet. Hand hygiene and 2% chlorhexidine and/or betadine/alcohol prep was utilized per protocol for cutaneous antisepsis. The skin and subcutaneous tissues were infiltrated with local anesthetic solution. The existing tube was accessed using sterile technique. The tube was removed over a 0.035 wire. A ne w tube was advanced over the wire and positioned into the stomach without difficulty. The balloon wa s inflated with appropriate volume of saline. Injection of positive contrast demonstrates good posit ion of the gastrostomy tube. Conscious sedation was performed with the prescribed dosages and duration as above in the presence of an independent trained radiology nurse to assist in the monitoring of the patient. EKG and oximetry remained stable throughout the procedure. The patient tolerated the procedure well and there were n o complications. The patient was sent to post anesthesia recovery in stable condition. CONCLUSION: Uncomplicated gastrostomy tube exchange as above. Victor Hugo Vasquez MD on February 03, 2017 at 16:48 Board Certified Radiologist. This report was verified electronically.
[2017-02-03] MEDS: FAMOTIDINE 40 MG/5 ML LIQ 50 ML BTL PO SCH ×2 (17:52)
[2017-02-04] VITALS: BP 93/61; PULSE 91; RESP 18; TEMP 98.3; O2SAT 96
[2017-02-04 04:00] VITALS: BP 90/67; PULSE 83; RESP 20; TEMP 99.1; O2SAT 94
[2017-02-04] MEDS: DIAZEPAM 5 MG TAB PO SCH ×2 (04:49)
[2017-02-04 08:00] VITALS: BP 98/58; PULSE 76; RESP 20; TEMP 98.2; O2SAT 95
[2017-02-04 08:01] VITALS: PULSE 75
[2017-02-04] MEDS ORDERED: VITA1000 PO ×2 (08:18)
--- NOTE | 2017-02-04 08:18 | HHI.DS ---
Discharge Summary Admission Date Feb 01, 2017 at 01:44 Discharge Date: Feb 04, 2017 Admitting Diagnosis Sepsis, UTI, Urinary Retention (1) Sepsis ICD Code: A41.9 - Sepsis, unspecified organism Status: Acute (2) Urinary retention ICD Code: R33.9 - Retention of urine, unspecified Status: Acute (3) Malfunctioning jejunostomy tube ICD Code: K94.13 - Enterostomy malfunction Procedures feeding tube replaced Brief History - From Admission Written by Sandrine Mckeon, acting as scribe for Dr. Ontiveros on 02/01/17 at 02:02. Spoke with the patient's caregiver who was at the patient's bedside. Lives at [facility]. The patient wasn't acting "like herself". Abdomen was really hard. Fluid retention was noted by staff in arms. Increased work of breathing was also noted. Minimal urinary output; no stool output. No known decubitus. Patient is non-verbal and cannot participate in medical history taking CBC/BMP: 02/02/17 0706 02/02/17 0706 Significant Findings Laboratory Tests Test 02/02/17 07:06 02/02/17 22:10 02/03/17 07:55 02/03/17 07:57 Red Blood Count 3.23 MIL/MM3 (4.00-5.30) Mean Corpuscular Volume 110.1 FL (80.0-100.0) Mean Corpuscular Hemoglobin 37.7 PG (27.0-34.0) Monocytes (%) (Auto) 22.6 % (0.0-8.0) Monocytes # (Auto) 2.1 TH/MM3 (0-0.9) Band Neutrophils % 19 % (0-6) Monocytes % 13 % (0-8) Target Cells 1+ (NORMAL) Random Glucose 52 MG/DL (74-106) Albumin 2.0 GM/DL (3.4-5.0) Calcium Level 8.2 MG/DL (8.5-10.1) Aspartate Amino Transf (AST/SGOT) 80 U/L (15-37) Estimat Glomerular Filtration Rate 79 ML/MIN (>89) Total Creatine Kinase 395 U/L (26-192) Imaging Last Impressions Catheter Change 02/03/17 0000 Signed Impressions: Service Date/Time: Friday, February 03, 2017 15:57 - CONCLUSION: Uncomplicated gastrostomy tube exchange as above. Victor Hugo Vasquez MD Liver Ultrasound 02/02/17 0000 Signed Impressions: Service Date/Time: February 20:30 - CONCLUSION: 1. Limited suboptimal exam. 2. Small pleural effusions are noted. 3. The right kidney appear unremarkable with no hydronephrosis. Shaun Villela MD Renal Ultrasound 02/01/17 0000 Signed Impressions: Service Date/Time: Wednesday, February 01, 2017 08:22 - CONCLUSION: Negative for obstruction. Thad Calloway MD FACR Abdomen/Pelvis CT 01/31/175 Signed Impressions: Service Date/Time: Wednesday, February 01, 2017 00:25 - CONCLUSION: Chronic consolidative changes in the lung bases. Mild proximal colonic distention may be a chronic appearance. No definite acute CT findings. Irving Chase MD Chest X-Ray 01/31/17 0000 Signed Impressions: Service Date/Time: Tuesday, January 31, 2017 23:27 - CONCLUSION: Mild basilar parenchymal opacities Irving Chase MD PE at Discharge GENERAL: Patient lying in bed. Appears comfortable. Nonverbal as before. SKIN: Warm and dry. HEAD: Normocephalic. EYES: No scleral icterus. No injection or drainage. NECK: Supple, trachea midline. CARDIOVASCULAR: Regular rate and rhythm without murmurs, gallops, or rubs. RESPIRATORY: Breath sounds equal bilaterally. No accessory muscle use. GASTROINTESTINAL: Abdomen soft, non-tender, nondistended. MUSCULOSKELETAL: No cyanosis, or edema. PEG tube without surrounding erythema or leakage. BACK: Nontender without obvious deformity. No CVA tenderness. 02/02. Order labs, further workup for transaminitis. for Escherichia coli UTI, switch to cefuroxime. Continue Mix for urinary obstruction. We'll need urology consult at receiving facility. No bowel movement since admission. Order laxatives. Hyperglycemia. 31 y/o female with profound intellectual disability presented to ED from [facility] for evaluation of diminished urinary output, peripheral edema, and abdominal distention. Sepsis Urinary retention Escherichia coli UTI - UA consistent with UTI - Lactic Acid 2.5; Bandemia - bands 39%, patient with tachycardia - meets sepsis criteria - Antibiotics: Zosyn 3.375 g IV every 6 hours--> switched to Rocephin. - monitor temperature and VS q4h - One out of 4 cultures with coag-negative staph. This is contaminant. -Renal ultrasound negative. - Discontinue IVF hydration with NS at 100 cc/hr - follow CBC results Dysphagia , on Tube feedings 02/03/17 feeding tube is clogged, consult IR for evaluation. Nurse was not able to declog feeding tube. - Continue nothing by mouth. - Jevity 1.5 at 45 cc/hr Free H2O flushes 120 ccs q4h - consult refrigeration repair supervisor -continue on same regimen. Appreciate assistance. Constipation - Emilee-colace 1 tablet BID p.o. - PRN Sennosides, MOM, Bisacodyl, Lactulose for constipation Hypoglycemia. -Glucose 52 on 02/02. Possibly secondary to infection. Continue tube feeds. Continue to monitor. Start Accu-Cheks. Transaminitis. -02/02 AST 80, increasing from 58 on admission. Ultrasound abdomen, CK, hepatitis profile ordered and pending. Urinary obstruction. Patient will need to leave Mix in place for now. Recommend evaluation by urology at receiving facility. Hypocalcemia on admission. Vitamin D deficiency Continue by mouth vitamin D. DVT prophylaxis - SCDs Discharge Planning Likely discharge today later or tomorrow, PEG tube is clogged. IR to evaluate. Hospital Course 31 y/o female with profound intellectual disability presented to ED from [facility] for evaluation of diminished urinary output, peripheral edema, and abdominal distention. Patient with Sepsis, Urinary retention, Escherichia coli UTI treated with antibiotics. One out of 4 cultures with coag-negative staph. This is contaminant. Feeding tube was clogged, IR replaced feeding tube prior to DC. Feeding tube is functionale, restart feedings. discharged top SNF in stable condition to follow up as OP with PCP and consultants Sepsis Urinary retention Escherichia coli UTI - UA consistent with UTI - Lactic Acid 2.5; Bandemia - bands 39%, patient with tachycardia - meets sepsis criteria - Antibiotics: Zosyn 3.375 g IV every 6 hours--> switched to Rocephin. - monitor temperature and VS q4h - One out of 4 cultures with coag-negative staph. This is contaminant. -Renal ultrasound negative. - Discontinue IVF hydration with NS at 100 cc/hr - follow CBC results Dysphagia , on Tube feedings 02/03/17 feeding tube is clogged, consult IR for evaluation. Nurse was not able to declog feeding tube. - Continue nothing by mouth. - Jevity 1.5 at 45 cc/hr Free H2O flushes 120 ccs q4h - consult refrigeration repair supervisor -continue on same regimen. Appreciate assistance. Constipation - Emilee-colace 1 tablet BID p.o. - PRN Sennosides, MOM, Bisacodyl, Lactulose for constipation Hypoglycemia. -Glucose 52 on 02/02. Possibly secondary to infection. Continue tube feeds. Continue to monitor. Start Accu-Cheks. Transaminitis. -02/02 AST 80, increasing from 58 on admission. Ultrasound abdomen, CK, hepatitis profile ordered and pending. Urinary obstruction. Patient will need to leave Mix in place for now. Recommend evaluation by urology at receiving facility. Hypocalcemia on admission. Vitamin D deficiency Continue by mouth vitamin D. DVT prophylaxis - SCDs Discharge Planning PEG tube is clogged. IR to evaluated , and replaced feeding tube. Feeding tube is functionale, restart feedings. discharged top SNF in stable condition to follow up as OP with PCP and consultants Pt Condition on Discharge: Stable Discharge Disposition: Discharge to SNF Discharge Time: > 30 minutes Discharge Instructions DIET: Follow Instructions for: On Tube Feeding Additional Diet Instructions: JEVITY 1.5 JULIETTE goal oif 45 cc/hr. Alos free water 125 mls q5-6 hrs Activities you can perform: Regular-No Restrictions Follow up Referrals: PCP Follow-up - 2-3 Days SNF[facility]/ with [facility] [phone] New Medications: Lactobacillus Acidophilus (Lactinex) 1 Chew 1 TAB CHEW DAILY for Nutritional Supplement, #30 TAB 0 Refills Cefuroxime Liq (Ceftin Liq) 250 Mg/5 Ml Susp 500 MG PO Q12HR for infection for 10 Days, MG Cholecalciferol (D 1000) 1,000 Unit Tab 2000 UNITS PO DAILY for supplement , #30 TAB Continued Medications: Clobazam (Onfi) 10 Mg Tab 15 MG PO BID, TAB Cyanocobalamin (Vitamin B-12) 1,000 Mcg Tab 1000 MCG PO DAILY for Nutritional Supplement, #1 BOTTLE 0 Refills Docusate Sodium Liq (Docu Liq) 50 Mg/5 Ml Liq 100 MG PO DAILY, ML Famotidine Liq (Pepcid Liq) 40 Mg/5 Ml Susp 20 MG PO DAILY, #50 ML 0 Refills Ferrous Sulfate Liq (Ferrous Sulfate Liq) 300 Mg/5 Ml Soln 300 MG PO DAILY for Nutritional Supplement, #150 ML 0 Refills Folic Acid (Folic Acid) 0.4 Mg Tab 400 MCG PO DAILY for Nutritional Supplement, TAB 0 Refills Glycopyrrolate (Glycopyrrolate) 1 Mg Tab 1 MG PO BID, #60 TAB 0 Refills Lactulose (Lactulose) 10 Gram/15 Ml (15 Ml) Solution 30 ML G-TUBE BID Lamotrigine (Lamictal) 200 Mg Tab 200 MG PO BID for Control Seizures, #60 TAB 0 Refills Levetiracetam Liq (Keppra Liq) 500 Mg/5 Ml Soln 2000 MG PO BID for Control Seizures, #300 ML 0 Refills Levocarnitine (Metabolic Modif) Liq (Levocarnitine Liq) 1 Gm/10 Ml Soln 2 ML G-TUBE TID Levonorgestrel-Ethinyl Estradiol (Seasonique) 0.15-0.03-0.01 Mg Tab 1 TAB PO DAILY for Control, #91 TAB 0 Refills Multiple Vitamin Liq (Dekas Essential Liq) 1 Liqd 5 ML PO DAILY for Nutritional Supplement, ML 0 Refills Valproic Acid (Depakene) 250 Mg Cap 250 MG PO TID, #90 CAP 0 Refills Agustina Duval MD Feb 04, 2017 08:18
[2017-02-04] MEDS ORDERED: LACTCHW3 CHEW ×2 (08:21)
[2017-02-04] MEDS ORDERED: CEFT250S PO ×2 (08:21)
[2017-02-04] MEDS: CEFUROXIME AXETIL SUSP 250 MG/5 ML 50 ML BTL PO SCH ×2 (09:00)
[2017-02-04] MEDS: SENNOSIDES SYRUP 8.8 MG/5 ML CUP PO SCH ×2 (09:00)
[2017-02-04] MEDS: DOCUSATE SODIUM 50 MG/SENNA 8.6 MG TAB PO SCH ×2 (09:00)
[2017-02-04] MEDS: GLYCOPYRROLATE 1 MG TAB PO SCH ×2 (09:00)
[2017-02-04] MEDS: LACTULOSE SYRUP 20 GM/30 ML CUP G-TUBE SCH ×2 (09:00)
[2017-02-04] MEDS: DOCUSATE SODIUM 100 MG/10 ML UDC PO SCH ×2 (09:00)
[2017-02-04] MEDS: FERROUS SULFATE 300 MG /5ML UDC PO SCH ×2 (09:00)
[2017-02-04] MEDS: VALPROIC ACID 250 MG CAP PO SCH ×2 (09:00)
[2017-02-04] MEDS: lamoTRIgine 100 MG TAB PO SCH ×2 (09:00)
[2017-02-04] MEDS: BIRTH CONTROL PO SCH ×2 (09:00)
[2017-02-04] MEDS: levOCARNitine 10% ORAL SOLN 118 ML BTL G-TUBE SCH ×2 (09:00)
[2017-02-04] MEDS: FAMOTIDINE 40 MG/5 ML LIQ 50 ML BTL PO SCH ×2 (09:00)
[2017-02-04] MEDS: levETIRAcetam 500 MG/5 ML UDC PO SCH ×2 (09:00)
[2017-02-04] MEDS: SODIUM CHLORIDE 0.9% FLUSH 10 ML FLUSH IV FLUSH SCH ×2 (10:26)
== END 2017-02-04 12:09 | DRG 872 ==
LOC: NEPC 22:28 → NEDA 02-01 01:44 → N04B 02-01 02:47
PROVIDERS: ADMIT Hospitalist; ATTEND Hospitalist
PROC: 0T9B70Z Drainage of Bladder with Drainage Device, Via Natural or Artificial Opening (ICD-10-PCS; 2017-02-01)
PROC: 0D20XUZ Change Feeding Device in Upper Intestinal Tract, External Approach (ICD-10-PCS; principal; 2017-02-03)
DX: A41.9 Sepsis, unspecified organism (principal); F73 Profound intellectual disabilities; K94.23 Gastrostomy malfunction; N39.0 Urinary tract infection, site not specified; G40.909 Epilepsy, unspecified, not intractable, without status epilepticus; K59.00 Constipation, unspecified; H52.209 Unspecified astigmatism, unspecified eye; B96.20 Unspecified Escherichia coli [E. coli] as the cause of diseases classified elsewhere; E16.2 Hypoglycemia, unspecified; E55.9 Vitamin D deficiency, unspecified; Y83.3 Surgical operation with formation of external stoma as the cause of abnormal reaction of the patient, or of later complication, without mention of misadventure at the time of the procedure; N13.9 Obstructive and reflux uropathy, unspecified; R13.10 Dysphagia, unspecified
CPT/HCPCS: 49450; 51702; 71010; 74177; 76705; 76775; 76937; 80053; 80074; 81001; 82306; 82550; 82552; 82948; 83605; 84703; 85007; 85027; 85610; 87040; 87077; 87086; 87186; 87205; 96361; 96374; C1769; J0610; J0696; J2060; J2543; J7030; Q9967

== ENCOUNTER → 2017-02-14 | Outpatient (CLI) | payer OTHER ==
[~2017-02-14] MED LIST changes: +Albuterol-Ipratropium Neb NEB; -BANZ400T PO; -BENZ1TAB PO; +CEFT250S PO; +CEFU1TAB18 G-TUBE; +CHOL5000 PO; -CLOB1SUS PO; -DEPA250T2 PO; -DOCU1CAP39 PO; +FAMO40S G-TUBE; +FAMO40S PO; +FERR300S G-TUBE; +FERR300S PO; +FOLI400T G-TUBE; +FOLI400T PO; +GLYC1TAB17 G-TUBE; +GLYC1TAB17 PO; -HALO10 PO; +LACT10SO G-TUBE; +LACT10SO PO; +LACT10SO5 G-TUBE; +LACTCHW3 CHEW; +LAMI200T G-TUBE; +LAMI200T PO; -LAMO100 PO; -LEVE500 PO; +LEVE500S G-TUBE; +LEVE500S PO; -LEVO PO; +LEVO-85 G-TUBE; +LEVO-85 PO; +LEVO1SOL G-TUBE; -LORA2CON2 PO; +MULT1LIQ9 PO; +ONFI10TA G-TUBE; +ONFI10TA PO; -OYST500T25 PO; +SODI1TAB G-TUBE; +SODI1TAB PO; -TAB-TAB PO; +VALP250 G-TUBE; +VALP250 PO; +VITA1000 PO; +VITA10002 PO; +[UNRECOGNIZED DRUG - CODE] G-TUBE; +[UNRECOGNIZED DRUG - CODE] PO
--- NOTE | 2017-02-14 10:06 | RADRPT ---
EXAM DATE/TIME: 02/14/2017 09:27 [facility] COMPARISON: No previous studies available for comparison. INDICATIONS : Cough. MEDICAL HISTORY : Profound intellectual disability. Seizures. Right elbow bursitis. SURGICAL HISTORY : Gastric tube. ENCOUNTER: Initial ACUITY: 1 day PAIN SCORE: Non-responsive. LOCATION: chest FINDINGS: PA and lateral views of the chest were the best obtainable given the patient's state of cooperation. There is a left lower lobe intra-alveolar infiltrate. Right lung is clear. No effusions. Heart is nor mal in size. Significant scoliotic curvature to the spine. An electronic device potentially related t o a neurostimulator overlying the left chest. CONCLUSION: Left lower lobe infiltrate. Elpidio Morin Jr., MD on February 14, 2017 at 9:58 Board Certified Radiologist. This report was verified electronically.
== END ==
LOC: HRAD 09:15
PROVIDERS: ATTEND Family Medicine Geriatric Medicine
DX: R05 Cough (principal); R91.8 Other nonspecific abnormal finding of lung field
CPT/HCPCS: 71020

== ENCOUNTER 2017-03-11 00:55 | Inpatient (IN) | payer OTHER ==
[2017-03-11] VITALS (19 sets, daily range): BP systolic 90–145; BP diastolic 55–88; PULSE 88–136; RESP 14–28; TEMP 97.3–102.5; O2SAT 92–99
[~2017-03-11 00:55] MED LIST changes: -Albuterol-Ipratropium Neb NEB; -CEFU1TAB18 G-TUBE; -CHOL5000 PO; -FAMO40S G-TUBE; -FERR300S G-TUBE; -FOLI400T G-TUBE; -GLYC1TAB17 G-TUBE; -LACT10SO G-TUBE; -LACT10SO PO; -LAMI200T G-TUBE; -LEVE500S G-TUBE; -LEVO-85 G-TUBE; -LEVO-85 PO; -ONFI10TA G-TUBE; -SODI1TAB G-TUBE; -SODI1TAB PO; -VALP250 G-TUBE; -[UNRECOGNIZED DRUG - CODE] G-TUBE
[2017-03-11] MEDS ORDERED: SODIUM CHLOR 0.9% 1000 ML INJ 800 ML IV ONE (01:23)
[2017-03-11] MEDS ORDERED: SODIUM CHLOR 0.9% 1000 ML INJ 1,000 ML IV ONE (01:23)
[2017-03-11] MEDS ORDERED: ACETAMINOPHEN 650 MG SUPP RECTAL ONE (01:30)
[2017-03-11 01:41] LABS: AUTOMATED NEUTROPHIL # 4.5 TH/MM3 (1.8-7.7); BASOPHIL % 0.4 % (0.0-2.0); HEMATOCRIT 35.8 % (35.0-46.0); HEMO FLAGS DIFF FINAL; LYMPH % 18.7 % (9.0-44.0); LYMPHOCYTE # 1.3 TH/MM3 (1.0-4.8); MEAN CELL VOLUME 108.1 FL (80.0-100.0); MEAN CORPUSCULAR HEMOGLOBIN 37.8 PG (27.0-34.0); MONO % 18.2 % (0.0-8.0); NEUT % 62.7 % (16.0-70.0); PLATELET COUNT 126 TH/MM3 (150-450); RED BLOOD COUNT 3.31 MIL/MM3 (4.00-5.30); RED CELL DISTRIBUTION WIDTH 13.6 % (11.6-17.2); WHITE BLOOD COUNT 7.2 TH/MM3 (4.0-11.0)
[2017-03-11] MEDS ORDERED: IBUPROFEN SUSP 100 MG/5 ML UDC PO ONE (01:45)
[2017-03-11 01:48] LABS: BACTERIA, URINE MOD /hpf; BLOOD, URINE SMALL (NEG); COMMENT (UR) CATH-CULTURE IND; CULTURE IF INDICATED CATH CULTURE IND; GLUCOSE,URINE NEG (NEG); KETONE, URINE 10 mg/dL (NEG); MUCUS URINE FEW /lpf (OCC); NITRITE,URINE POS (NEG); PH, URINE 7.5 (5.0-8.5); SQUAMOUS EPITHELIAL CELL URINE <1 /hpf (0-5); URINE COLOR YELLOW (YELLW/STRAW)
[2017-03-11] MEDS ORDERED: LEVO-85 PO (01:56)
[2017-03-11] MEDS ORDERED: SODI1TAB PO (01:56)
[2017-03-11] MEDS ORDERED: CHOL5000 PO (01:56)
[2017-03-11] MEDS ORDERED: LACT10SO PO (01:56)
[2017-03-11 01:59] LABS: ALKALINE PHOSPHATASE 87 U/L (45-117); TOTAL BILIRUBIN ADULT 0.4 MG/DL (0.2-1.0)
[2017-03-11 02:00] LABS: ALT (GPT) 50 U/L (10-53); ANION GAP 7 MEQ/L (5-15); AST (GOT) 95 U/L (15-37); BICARBONATE 29.4 MEQ/L (21.0-32.0); BLOOD UREA NITROGEN 7 MG/DL (7-18); CHLORIDE 99 MEQ/L (98-107); GLOMERULAR FILTRATION RATE 84 ML/MIN (>89); SODIUM (NA) 135 MEQ/L (136-145)
[2017-03-11 02:01] LABS: POTASSIUM 4.5 MEQ/L (3.5-5.1)
--- NOTE | 2017-03-11 02:24 | RADRPT ---
EXAM DATE/TIME: 03/11/2017 02:07 [facility] COMPARISON: No previous studies available for comparison. INDICATIONS : Short of breath. MEDICAL HISTORY : Profound intellectual disability. Seizures. Right elbow bursitis. SURGICAL HISTORY : Gastric tube. Pacemaker. ENCOUNTER: Initial ACUITY: 1 day PAIN SCORE: Non-responsive. LOCATION: Bilateral chest FINDINGS: There is respiratory motion artifact, scoliosis and the patient is rotated slightly to the left. Ther e is parenchymal disease in the left lower lobe again noted. No obvious effusion. The right lung is c lear. CONCLUSION: Motion artifact with left lower lobe airspace disease. Tommy Herrmann MD on March 11, 2017 at 2:22 Board Certified Radiologist. This report was verified electronically.
[2017-03-11] MEDS ORDERED: AZITHROMYCIN INJ 500 MG in SODIUM CHLOR 0.9% 250 ML INJ 250 ML IV STA (02:30)
[2017-03-11] MEDS ORDERED: cefTRIAXone INJ 1,000 MG in SODIUM CHLORIDE 0.9% INJ 100 ML IV STA (02:30)
--- NOTE | 2017-03-11 02:52 | PD ---
HPI . Respiratory distress Chief Complaint: Respiratory Symptoms Time Seen by Provider: 01:14 Travel History International Travel<30 days: No Contact w/Intl Traveler<30days: No Traveled to known affect area: No History of Present Illness HPI This patient lives in a care home. She is reportedly chronically nonverbal. She has a significant seizure disorder. She was brought to us tonight by EMS because of apparent respiratory distress. The patient is unable to give any history. The caregiver who is here with her came on duty at 11 PM tonight. The caregiver reports seizure activity tonight before she came on duty. She states that this is not at all unusual for the patient. The caregiver states that she noticed that the patient was struggling to breathe. Rescue was called and the patient was brought to the hospital. Sats were reportedly in the 70s prior to the arrival of [facility]. The patient had already been placed on oxygen prior to the arrival of the back. PFSH Past Medical History Developmental Delay: Yes (INTELLECTUAL DISABILITY) Diminished Hearing: No (UNABLE TO OBTAIN) Musculoskeletal: Yes (BURITIS R ELBOW, PATELLAR SUBLUX) Neurologic: Yes (MR) Psychiatric: Yes (BEHAVIORAL, IMPULSE CONTROL DISORDER) Seizures: Yes Tetanus Vaccination: Unknown Influenza Vaccination: No ?: Unknown Past Surgical History Oral Surgery: Yes Other Surgery: Yes (G TUBE) Social History Alcohol Use: No (UNABLE TO OBTAIN) Tobacco Use: No (UNABLE TO OBTAIN) Substance Use: No (UNABLE TO OBTAIN) Allergies-Medications (Allergen,Severity, Reaction): Coded Allergies: nitrofurantoin (Verified Allergy, Unknown, 03/11/17) Reported Meds & Prescriptions Reported Meds & Active Scripts Active Reported Lactulose Liq (Lactulose) 10 Gm/15 Ml Soln 45 Ml PO TID Sodium Chloride 1 Gram Tab 1 Gm PO BID Vitamin D3 (Cholecalciferol) 5,000 Unit Cap 5,000 Units PO DAILY Ashlyna (Levonorgestrel-Ethinyl Estradiol) 0.15-0.03-0.01 Mg Tab 1 Tab PO DAILY Docu Liq (Docusate Sodium) 50 Mg/5 Ml Liq 100 Mg PO DAILY Ferrous Sulfate Liq (Ferrous Sulfate) 300 Mg/5 Ml Soln 300 Mg PO DAILY Dekas Essential Liq (Multiple Vitamin Liq) 1 Liqd 5 Ml PO DAILY Onfi (Clobazam) 10 Mg Tab 15 Mg PO BID Keppra Liq (Levetiracetam) 500 Mg/5 Ml Soln 2,000 Mg PO BID Lamictal (Lamotrigine) 200 Mg Tab 200 Mg PO BID Glycopyrrolate 1 Mg Tab 1 Mg PO BID Pepcid Liq (Famotidine) 40 Mg/5 Ml Susp 20 Mg PO DAILY Folic Acid 0.4 Mg Tab 400 Mcg PO DAILY Vitamin B-12 (Cyanocobalamin) 1,000 Mcg Tab 1,000 Mcg PO DAILY Depakene (Valproic Acid) 250 Mg Cap 250 Mg PO TID Levocarnitine Liq (Levocarnitine (Metabolic Modif) Liq) 1 Gm/10 Ml Soln 2 Ml G- TUBE TID Review of Systems Except as stated in HPI: all other systems reviewed are Neg General / Constitutional: Positive: Fever Respiratory: Positive: Shortness of Breath Neurologic: Positive: Seizures Physical Exam Narrative GENERAL: Patient is awake and alert and looking around the room. SKIN: warm/dry. HEAD: Normocephalic. Atraumatic. EYES: Pupils equal and round. No scleral icterus. No injection or drainage. ENT: No nasal bleeding or discharge. Mucous membranes pink and moist. Her lips are large and cracked. Her design maintenance engineer reports that this is the normal appearance of her lips. NECK: Trachea midline. Full range of motion without pain.. CARDIOVASCULAR: Regular tachycardia. RESPIRATORY: No accessory muscle use. Clear to auscultation anteriorly. Breath sounds equal bilaterally. GASTROINTESTINAL: Abdomen soft. Nontender. Bowel sounds present. Nondistended. She has a PEG tube in place. MUSCULOSKELETAL: No obvious deformities. Muscle atrophy of the lower extremities. NEUROLOGICAL: Awake and alert. No obvious cranial nerve deficits. No obvious focal deficits. PSYCHIATRIC: Unable to assess. Data Data Last Documented VS Vital Signs Date Time Temp Pulse Resp B/P (MAP) Pulse Ox O2 Delivery O2 Flow Rate FiO2 03/11/17 02:30 114 20 108/60 (76) 95 Nasal Cannula 2.00 03/11/17 01:23 102.5 Orders Orders Sepsis Workup Initiated (03/11/17 ) Complete Blood Count With Diff (03/11/17 01:14) Comprehensive Metabolic Panel (03/11/17 01:14) Lactic Acid Sepsis Protocol (03/11/17 01:14) Magnesium (Mg) (03/11/17 01:14) Urinalysis - C+S If Indicated (03/11/17 01:14) Blood Culture (03/11/17 01:14) Chest, Single Ap (03/11/17 01:14) Ecg Monitoring (03/11/17 01:14) Iv Access Insert/Monitor (03/11/17 01:14) Cath For Specimen (03/11/17 01:14) Oximetry (03/11/17 01:14) Oxygen Administration (03/11/17 01:14) Acetaminophen Supp (Tylenol Supp) (03/11/17 01:30) Sodium Chlor 0.9% 1000 Ml Inj (Ns 1000 M (03/11/17 01:23) Sodium Chlor 0.9% 1000 Ml Inj (Ns 1000 M (03/11/17 01:23) Ibuprofen Liq (Motrin Liq) (03/11/17 01:45) Urine Culture (03/11/17 01:23) Ceftriaxone Inj (Rocephin Inj) (03/11/17 02:30) Azithromycin Inj (Zithromax Inj) (03/11/17 02:30) Admit Order (Ed Use Only) (03/11/17 ) Assembler Ping Pong Table / Telemetry ULI.Q8H (03/11/17 03:01) Vital Signs (Adult) Q4H (03/11/17 03:01) Admit To Inpatient (03/11/17 ) Diet Npo (03/11/17 Breakfast) Activity Bed Rest (03/11/17 03:01) Vital Signs (Adult) Q4H (03/11/17 02:59) Notify Dr: Other (03/11/17 03:01) Activity Bed Rest (03/11/17 02:59) Bedside Glucose ULI.CSUGAR (03/11/17 02:59) Sodium Chlor 0.9% 1000 Ml Inj (Ns 1000 M (03/11/17 02:59) Sodium Chloride 0.9% Flush (Ns Flush) (03/11/17 03:00) Sodium Chloride 0.9% Flush (Ns Flush) (03/11/17 09:00) Acetaminophen (Tylenol) (03/11/17 03:00) Ondansetron Inj (Zofran Inj) (03/11/17 03:00) Comprehensive Metabolic Panel (03/12/17 06:00) Complete Blood Count With Diff (03/12/17 06:00) Resp Oxygen James C Titrat 1-4 L (03/11/17 ) Pt Request For Service (03/11/17 02:59) Case Management Consult (03/11/17 02:59) Scd Bilateral/Knee High ULI.BID (03/11/17 02:59) Naloxone Inj (Narcan Inj) (03/11/17 03:00) Docusate Sodium-Senna (Emilee-Colace) (03/11/17 09:00) Magnesium Hydroxide Liq (Milk Of Magnesi (03/11/17 03:00) Sennosides (Senokot) (03/11/17 03:00) Bisacodyl Supp (Dulcolax Supp) (03/11/17 03:00) Lactulose Liq (Lactulose Liq) (03/11/17 03:00) Inpatient Certification (03/11/17 ) Azithromycin Inj (Zithromax Inj) (03/12/17 03:00) Ceftriaxone Inj (Rocephin Inj) (03/12/17 03:00) Labs Laboratory Tests Test 03/11/17 01:23 White Blood Count 7.2 TH/MM3 Red Blood Count 3.31 MIL/MM3 Hemoglobin 12.5 GM/DL Hematocrit 35.8 % Mean Corpuscular Volume 108.1 FL Mean Corpuscular Hemoglobin 37.8 PG Mean Corpuscular Hemoglobin Concent 35.0 % Red Cell Distribution Width 13.6 % Platelet Count 126 TH/MM3 Mean Platelet Volume 10.2 FL Neutrophils (%) (Auto) 62.7 % Lymphocytes (%) (Auto) 18.7 % Monocytes (%) (Auto) 18.2 % Eosinophils (%) (Auto) 0.0 % Basophils (%) (Auto) 0.4 % Neutrophils # (Auto) 4.5 TH/MM3 Lymphocytes # (Auto) 1.3 TH/MM3 Monocytes # (Auto) 1.3 TH/MM3 Eosinophils # (Auto) 0.0 TH/MM3 Basophils # (Auto) 0.0 TH/MM3 CBC Comment DIFF FINAL Differential Comment Urine Color YELLOW Urine Turbidity HAZY Urine pH 7.5 Urine Specific [place] 1.020 Urine Protein TRACE mg/dL Urine Glucose (UA) NEG mg/dL Urine Ketones 10 mg/dL Urine Occult Blood SMALL Urine Nitrite POS Urine Bilirubin NEG Urine Urobilinogen LESS THAN 2.0 MG/DL Urine Leukocyte Esterase MOD Urine RBC 6 /hpf Urine WBC 35 /hpf Urine Squamous Epithelial Cells <1 /hpf Urine Bacteria MOD /hpf Urine Mucus FEW /lpf Microscopic Urinalysis Comment CATH-CULTURE IND Blood Urea Nitrogen 7 MG/DL Creatinine 0.80 MG/DL Random Glucose 118 MG/DL Total Protein 7.5 GM/DL Albumin 2.2 GM/DL Calcium Level 7.7 MG/DL Magnesium Level 2.0 MG/DL Alkaline Phosphatase 87 U/L Aspartate Amino Transf (AST/SGOT) 95 U/L Alanine Aminotransferase (ALT/SGPT) 50 U/L Total Bilirubin 0.4 MG/DL Sodium Level 135 MEQ/L Potassium Level 4.5 MEQ/L Chloride Level 99 MEQ/L Carbon Dioxide Level 29.4 MEQ/L Anion Gap 7 MEQ/L Estimat Glomerular Filtration Rate 84 ML/MIN Lactic Acid Level 3.7 mmol/L MDM Medical Decision Making Medical Screen Exam Complete: Yes Emergency Medical Condition: Yes Differential Diagnosis Differential diagnosis of fever includes but is not limited to viral illness, strep throat, otitis media, pneumonia, sepsis, UTI Narrative Course This patient presented to us with respiratory distress per [facility]. She was found to be febrile at triage. Septic workup was initiated. Fluid bolus was initiated. She had reportedly been given Tylenol facility prior to presentation. She was subsequently given ibuprofen through her PEG tube here. CBC & BMP Diagram 03/11/17 01:23 Total Protein 7.5, Albumin 2.2 L, Calcium Level 7.7 L, Magnesium Level 2.0, Alkaline Phosphatase 87, Aspartate Amino Transf (AST/SGOT) 95 H, Alanine Aminotransferase (ALT/SGPT) 50, Total Bilirubin 0.4 LA 3.7 UA>>pos nit, mod LE, 6 RBCs, 35 WBCs, mod bact Last Impressions Chest X-Ray 03/11/17 0114 Signed Impressions: Service Date/Time: Saturday, March 11, 2017 02:07 - CONCLUSION: Motion artifact with left lower lobe airspace disease. oTmmy Herrmann MD I have ordered Rocephin and Zithromax to cover both a UTI and pneumonia. Critical Care Narrative Aggregate critical care time was 45 minutes. Time to perform other separately billable procedures was not included in the critical care time. My time did not include minutes spent treating any other patients simultaneously or on activities that did not directly contribute to the patient's treatment. The services I provided to this patient were to treat and/or prevent clinically significant deterioration due to respiratory distress, severe sepsis I provided critical care services requiring my management, as noted below: Chart data review, documentation time, medication orders and management, vital sign assessments/reviewing monitor data, ordering and reviewing lab tests, ordering and interpreting/reviewing x-rays and diagnostic studies, care of the patient and discussion of the patient with the admitting physicians Sepsis Criteria SIRS Criteria (2 or more): Temp > 100.9 or < 96.8, Heart rate over 90 Sepsis Criteria (SIRS+source): Infect source susp/known Severe Sepsis (+one): Lactate >2 Criteria Outcome: Meets SIRS criteria, Meets sepsis criteria, Meets severe sepsis criteria Physician Communication Physician Communication Dr. Garnett Diagnosis Primary Impression: Severe sepsis Additional Impressions: Urinary tract infection Qualified Codes: N30.00 - Acute cystitis without hematuria Pneumonia Qualified Codes: J18.1 - Lobar pneumonia, unspecified organism Admitting Information Admitting Physician Requests: Admit Condition: Stable Adrianna Rai MD Mar 11, 2017 02:52
[2017-03-11] MEDS ORDERED: SODIUM CHLORIDE 0.9% FLUSH 10 ML FLUSH IV FLUSH PRN (03:00)
[2017-03-11] MEDS ORDERED: LACTULOSE SYRUP 20 GM/30 ML CUP PO PRN (03:00)
[2017-03-11] MEDS ORDERED: NALOXONE HCL 0.4 MG/ML AMP IV PUSH PRN (03:00)
[2017-03-11] MEDS ORDERED: ONDANSETRON HCL 4 MG/2 ML VIAL IVP PRN (03:00)
[2017-03-11] MEDS ORDERED: BISACODYL 10 MG SUPP RECTAL PRN (03:00)
[2017-03-11] MEDS ORDERED: MAGNESIUM HYDROXIDE SUSP 30 ML CUP PO PRN (03:00)
[2017-03-11] MEDS ORDERED: SENNOSIDES 8.6 MG TAB PO PRN (03:00)
[2017-03-11] MEDS ORDERED: RESP: ALBUTEROL 2.5 MG/IPRATROPIUM 0.5 MG NEB (SCH) INH ONE (03:30)
[2017-03-11 03:35] LABS: LACTIC ACID GHOST NOT REPORTABLE
[2017-03-11] MEDS: SODIUM CHLOR 0.9% 1000 ML INJ 1,000 ML IV SCH ×2 (03:46→17:17)
[2017-03-11] MEDS: CLOBAZAM PO SCH ×2 (09:00→20:06)
[2017-03-11] MEDS: SODIUM CHLORIDE 0.9% FLUSH 10 ML FLUSH IV FLUSH SCH ×2 (09:00→20:06)
[2017-03-11] MEDS: levOCARNitine 10% ORAL SOLN 118 ML BTL G-TUBE SCH ×3 (09:00→18:00)
[2017-03-11] MEDS ORDERED: VALPROIC ACID 250 MG CAP PO SCH (09:00)
[2017-03-11] MEDS: FAMOTIDINE 20 MG TAB PO SCH (09:00)
[2017-03-11] MEDS: LEVONORGESTREL ETHINYL ESTRADIOL PO SCH (09:00)
--- NOTE | 2017-03-11 09:22 | HHI.HP ---
HPI Service [facility] Primary Care Physician Unknown Admission Diagnosis severe sepsis, pneumonia, UTI Diagnoses: Chief Complaint: seizures Travel History International Travel<30 Days: No Contact w/Intl Traveler <30 Da: No Traveled to Known Affected Are: No History of Present Illness 32 yo F with h/o developmental delay, MRLesia This patient lives in a detention. She is reportedly chronically nonverbal. She has a significant seizure disorder. She was brought to us tonight by EMS because of apparent respiratory distress. The patient is unable to give any history. The caregiver who came to ER with her came on duty at 11 PM last night. The caregiver reported seizure activity tonight before she came on duty. She states that this is not at all unusual for the patient. The caregiver states that she noticed that the patient was struggling to breathe. Rescue was called and the patient was brought to the hospital. Sats were reportedly in the 70s prior to the arrival of [facility]. The patient had already been placed on oxygen prior to the arrival of the back. Review of Systems ROS Limitations: Clinical Condition, Altered Mental Status Except as stated in HPI: all other systems reviewed are Neg Past Family Social History Past Medical History Developmental delay , MR Profound intellectual disability Behavioral/impulse control disorder Seizure disorder Constipation Self-injurious behaviors Conduct disorder Chronic blepharitis Dysmenorrhea Compound myoclonic astigmatism Severe chronic cystitis Past Surgical History G tube placement Patient is non-verbal and cannot participate in medical history taking - obtained from EMR: Reported Medications Last Impressions Chest X-Ray 03/11/17 0114 Signed Impressions: Service Date/Time: Saturday, March 11, 2017 02:07 - CONCLUSION: Motion artifact with left lower lobe airspace disease. Tommy Herrmann MD Allergies: Coded Allergies: nitrofurantoin (Verified Allergy, Unknown, 03/11/17) Family History Not able to obtain Social History Not able to obtain from patient, as nonverbal. No EtOH , tobacco or illicit drug use reported. Physical Exam Vital Signs Vital Signs Date Time Temp Pulse Resp B/P (MAP) Pulse Ox O2 Delivery O2 Flow Rate FiO2 03/11/17 05:52 113 03/11/17 05:40 97.5 115 24 129/62 (84) 98 03/11/17 05:16 03/11/17 05:15 98.2 117 24 118/86 (97) 99 Room Air 5.00 03/11/17 03:41 92 Nasal Cannula 6.00 03/11/17 03:30 124 28 115/88 (97) 97 Nasal Cannula 4.00 03/11/17 02:30 114 20 108/60 (76) 95 Nasal Cannula 2.00 03/11/17 01:37 20 98 Nasal Cannula 2.00 03/11/17 01:37 97 Nasal Cannula 2.00 03/11/17 01:30 124 20 90/55 (67) 97 Nasal Cannula 2.00 03/11/17 01:23 102.5 03/11/17 01:02 100.9 136 20 127/57 (80) 93 Room Air Physical Exam GENERAL: This is a well-nourished, well-developed patient, in no apparent distress. SKIN: No rashes, ecchymoses or lesions. Cool and dry. HEAD: Atraumatic. Normocephalic. No temporal or scalp tenderness. EYES: Pupils equal round and reactive. Extraocular motions intact. No scleral icterus. No injection or drainage. ENT: Nose without bleeding, purulent drainage or septal hematoma. Throat without erythema, tonsillar hypertrophy or exudate. Uvula midline. Airway patent. NECK: Trachea midline. No JVD or lymphadenopathy. Supple, nontender, no meningeal signs. CARDIOVASCULAR: Regular rate and rhythm without murmurs, gallops, or rubs. RESPIRATORY: Clear to auscultation. Breath sounds equal bilaterally. No wheezes , rales, or rhonchi. GASTROINTESTINAL: Abdomen soft, non-tender, nondistended. No hepato-splenomegaly , or palpable masses. No guarding. MUSCULOSKELETAL: Extremities without clubbing, cyanosis, or edema. No joint tenderness, effusion, or edema noted. No calf tenderness. Negative Homans sign bilaterally. NEUROLOGICAL: Awake and alert. Cranial nerves II through XII intact. Motor and sensory grossly within normal limits. Five out of 5 muscle strength in all muscle groups. Normal speech. Laboratory Laboratory Tests Test 03/11/17 01:23 03/11/17 04:50 White Blood Count 7.2 Red Blood Count 3.31 Hemoglobin 12.5 Hematocrit 35.8 Mean Corpuscular Volume 108.1 Mean Corpuscular Hemoglobin 37.8 Mean Corpuscular Hemoglobin Concent 35.0 Red Cell Distribution Width 13.6 Platelet Count 126 Mean Platelet Volume 10.2 Neutrophils (%) (Auto) 62.7 Lymphocytes (%) (Auto) 18.7 Monocytes (%) (Auto) 18.2 Eosinophils (%) (Auto) 0.0 Basophils (%) (Auto) 0.4 Neutrophils # (Auto) 4.5 Lymphocytes # (Auto) 1.3 Monocytes # (Auto) 1.3 Eosinophils # (Auto) 0.0 Basophils # (Auto) 0.0 CBC Comment DIFF FINAL Differential Comment Urine Color YELLOW Urine Turbidity HAZY Urine pH 7.5 Urine Specific [place] 1.020 Urine Protein TRACE Urine Glucose (UA) NEG Urine Ketones 10 Urine Occult Blood SMALL Urine Nitrite POS Urine Bilirubin NEG Urine Urobilinogen LESS THAN 2.0 Urine Leukocyte Esterase MOD Urine RBC 6 Urine WBC 35 Urine Squamous Epithelial Cells <1 Urine Bacteria MOD Urine Mucus FEW Microscopic Urinalysis Comment CATH-CULTURE IND Blood Urea Nitrogen 7 Creatinine 0.80 Random Glucose 118 Total Protein 7.5 Albumin 2.2 Calcium Level 7.7 Magnesium Level 2.0 Alkaline Phosphatase 87 Aspartate Amino Transf (AST/SGOT) 95 Alanine Aminotransferase (ALT/SGPT) 50 Total Bilirubin 0.4 Sodium Level 135 Potassium Level 4.5 Chloride Level 99 Carbon Dioxide Level 29.4 Anion Gap 7 Estimat Glomerular Filtration Rate 84 Lactic Acid Level 3.7 1.5 Date/Time Source Procedure Growth Status 03/11/17 01:23 Blood Peripheral Aerobic Blood Culture Pending Received 03/11/17 01:23 Blood Peripheral Anaerobic Blood Culture Pending Received 03/11/17 01:23 Urine Catheterized Urine Urine Culture Pending Received Result Diagram: 03/11/173 03/11/17 0123 Caprini VTE Risk Assessment Caprini VTE Risk Assessment: Mod/High Risk (score >= 2) Caprini Risk Assessment Model Point Value = 1 Point Value = 2 Point Value = 3 Point Value = 5 Age 41-60 Minor surgery BMI > 25 kg/m2 Swollen legs Varicose veins or History of unexplained or recurrent spontaneous Oral contraceptives or hormone replacement Sepsis (< 1 month) Serious lung disease, including pneumonia (< 1 month) Abnormal pulmonary function Acute myocardial infarction Congestive heart failure (< 1 month) History of inflammatory bowel disease Medical patient at bed rest Age 61-74 Arthroscopic surgery Major open surgery (> 45 min) Laparoscopic surgery (> 45 min) Malignancy Confined to bed (> 72 hours) Immobilizing plaster cast Central venous access Age >= 75 History of VTE Family history of VTE Factor V Leiden Prothrombin [id number] Lupus anticoagulant Anticardiolipin antibodies Elevated serum homocysteine Heparin-induced thrombocytopenia Other congenital or acquired thrombophilia Stroke (< 1 month) Elective arthroplasty Hip, pelvis, or leg fracture Acute spinal cord injury (< 1 month) Prophylaxis Regimen Total Risk Factor Score Risk Level Prophylaxis Regimen 0-1 Low Early ambulation 2 Moderate Order ONE of the following: *Sequential Compression Device (SCD) *Heparin 5000 units SQ BID 3-4 Higher Order ONE of the following medications: *Heparin 5000 units SQ TID *Enoxaparin/Lovenox 40 mg SQ daily (WT < 150 kg, CrCl > 30 mL/min) *Enoxaparin/Lovenox 30 mg SQ daily (WT < 150 kg, CrCl > 10-29 mL/min) *Enoxaparin/Lovenox 30 mg SQ BID (WT < 150 kg, CrCl > 30 mL/min) AND/OR *Sequential Compression Device (SCD) 5 or more Highest Order ONE of the following medications: *Heparin 5000 units SQ TID (Preferred with Epidurals) *Enoxaparin/Lovenox 40 mg SQ daily (WT < 150 kg, CrCl > 30 mL/min) *Enoxaparin/Lovenox 30 mg SQ daily (WT < 150 kg, CrCl > 10-29 mL/min) *Enoxaparin/Lovenox 30 mg SQ BID (WT < 150 kg, CrCl > 30 mL/min) AND *Sequential Compression Device (SCD) Assessment and Plan Assessment and Plan 32 y/o female with profound intellectual disability presented to ED from [facility] Severe sepsis (fever, LA, Urinary tract infection, Lobar PNA Urinary retention UA with poss UTI, urine Cx pending. Blood cx pending . CXR reviewed with poss left lobar PNA, poor image will repeat CXR tomorrow am On IV abx Rocephin and Zithromax to cover both a UTI and pneumonia. Received IVF Tube feedings NPO Jevity 1.5 at 45 cc/hr Free H2O flushes 120 ccs q4h Constipation- bowel regime. DVT prophylaxis - SCDs Discussed Condition With nurse Physician Certification 2 Midnight Certification Type: Admission for Inpatient Services Order for Inpatient Services The services are ordered in accordance with Medicare regulations or non- Medicare payer requirements, as applicable. In the case of services not specified as inpatient-only, they are appropriately provided as inpatient services in accordance with the 2-midnight benchmark. Estimated LOS (days): 3 days is the estimated time the patient will need to remain in the hospital, assuming treatment plan goals are met and no additional complications. Post-Hospital Plan: [facility] Agustina Duval MD Mar 11, 2017 09:22
[2017-03-11] MEDS ORDERED: RESP: ALBUTEROL 2.5 MG/IPRATROPIUM 0.5 MG NEB (PRN) NEB (09:30)
[2017-03-11] MEDS: DOCUSATE SODIUM 50 MG/SENNA 8.6 MG TAB PO SCH ×2 (11:08→20:05)
[2017-03-11] MEDS: lamoTRIgine 100 MG TAB PO SCH ×2 (11:09→20:05)
[2017-03-11] MEDS: FOLIC ACID 1 MG TAB PO SCH (11:09)
[2017-03-11] MEDS: levETIRAcetam 500 MG/5 ML UDC PO SCH ×2 (11:09→20:05)
[2017-03-11] MEDS: FERROUS SULFATE 300 MG /5ML UDC PO SCH (11:09)
[2017-03-11] MEDS: GLYCOPYRROLATE 1 MG TAB PO SCH ×2 (11:09→20:04)
[2017-03-11] MEDS: SODIUM CHLORIDE 1 GRAM TAB PO SCH ×2 (11:26→20:05)
[2017-03-11] MEDS: VALPROIC ACID SYRUP 250 MG/5 ML UDC G-TUBE SCH ×3 (11:26→18:00)
[2017-03-11] MEDS: ACETAMINOPHEN 325 MG TAB PO PRN (21:34)
[2017-03-12] VITALS (8 sets, daily range): BP systolic 88–143; BP diastolic 52–56; PULSE 101–123; RESP 18–20; TEMP 97–100; O2SAT 93–96
[2017-03-12] MEDS: cefTRIAXone INJ 1,000 MG in SODIUM CHLORIDE 0.9% INJ 100 ML IV SCH (02:48)
[2017-03-12] MEDS: AZITHROMYCIN INJ 500 MG in SODIUM CHLOR 0.9% 250 ML INJ 250 ML IV SCH (02:48)
[2017-03-12] MEDS: SODIUM CHLOR 0.9% 1000 ML INJ 1,000 ML IV SCH ×2 (02:49→19:51)
--- NOTE | 2017-03-12 06:16 | RADRPT ---
EXAM DATE/TIME: 03/12/2017 05:31 [facility] COMPARISON: CHEST SINGLE AP, March 11, 2017, 2:07. INDICATIONS : Evaluate for pneumonia MEDICAL HISTORY : Seizures SURGICAL HISTORY : Pacemaker. Gastric Tube ENCOUNTER: Subsequent ACUITY: 2 days PAIN SCORE: Non-responsive. LOCATION: Bilateral chest FINDINGS: There is mild dextroscoliosis. Right lung is clear. There is left lower lobe airspace disease. No eff usions. CONCLUSION: Left lower lobe airspace disease is identified. Tommy Herrmann MD on March 12, 2017 at 6:15 Board Certified Radiologist. This report was verified electronically.
[2017-03-12] MEDS: CLOBAZAM PO SCH ×2 (09:00→21:00)
[2017-03-12] MEDS: LEVONORGESTREL ETHINYL ESTRADIOL PO SCH (09:00)
[2017-03-12] MEDS: SODIUM CHLORIDE 0.9% FLUSH 10 ML FLUSH IV FLUSH SCH ×2 (09:00→21:00)
[2017-03-12] MEDS: DOCUSATE SODIUM 50 MG/SENNA 8.6 MG TAB PO SCH ×2 (09:48→22:21)
[2017-03-12] MEDS: FAMOTIDINE 20 MG TAB PO SCH (09:48)
[2017-03-12] MEDS: FOLIC ACID 1 MG TAB PO SCH (09:48)
[2017-03-12] MEDS: SODIUM CHLORIDE 1 GRAM TAB PO SCH ×2 (09:48→22:20)
[2017-03-12] MEDS: FERROUS SULFATE 300 MG /5ML UDC PO SCH (09:48)
[2017-03-12] MEDS: levETIRAcetam 500 MG/5 ML UDC PO SCH ×2 (09:48→22:20)
[2017-03-12] MEDS: lamoTRIgine 100 MG TAB PO SCH ×2 (09:48→22:21)
[2017-03-12] MEDS: levOCARNitine 10% ORAL SOLN 118 ML BTL G-TUBE SCH ×3 (09:49→17:24)
[2017-03-12] MEDS: VALPROIC ACID SYRUP 250 MG/5 ML UDC G-TUBE SCH ×3 (09:53→17:24)
[2017-03-12] MEDS: GLYCOPYRROLATE 1 MG TAB PO SCH ×2 (09:53→22:20)
[2017-03-12 10:19] LABS: BICARBONATE 25.7 MEQ/L (21.0-32.0); CALCIUM-PROTEIN CORRECTED 8.1 MG/DL (8.5-10.1); POTASSIUM 4.5 MEQ/L (3.5-5.1); TOTAL BILIRUBIN ADULT 0.3 MG/DL (0.2-1.0)
--- NOTE | 2017-03-12 11:50 | HHI.PR ---
Subjective Remarks Follow-up pneumonia, sepsis. Per nursing, no changes overnight. Patient reportedly becomes combative at times when she wakes up. Objective Vitals Vital Signs Date Time Temp Pulse Resp B/P (MAP) Pulse Ox O2 Delivery O2 Flow Rate FiO2 03/12/17 10:09 93 03/12/17 08:00 97.0 110 20 90/56 (67) 93 03/12/17 04:00 101 03/12/17 04:00 99.1 119 18 143/52 (82) 95 03/12/17 00:00 109 03/12/17 00:00 100.0 123 18 103/54 (70) 95 03/11/17 23:30 126 03/11/17 22:00 113 03/11/17 21:00 116 03/11/17 20:00 102.2 120 22 105/70 (82) 94 03/11/17 20:00 120 03/11/17 18:00 96 Nasal Cannula 2.00 03/11/17 15:00 97.3 116 14 132/77 (95) 96 03/11/17 15:00 116 03/11/17 13:33 94 Nasal Cannula 2.00 I/O 03/11/17 03/11/17 03/11/17 03/12/17 03/12/17 03/12/17 07:00 15:00 23:00 07:00 15:00 23:00 Intake Total 2150 ml 0 ml Balance 2150 ml 0 ml Intake Oral 0 ml IV Total 2150 ml # Voids 2 Result Diagram: 03/11/17 0123 03/12/17 0839 Imaging Last Impressions Chest X-Ray 03/12/17 0600 Signed Impressions: Service Date/Time: Sunday, March 12, 2017 05:31 - CONCLUSION: Left lower lobe airspace disease is identified. Tommy Herrmann MD Objective Remarks General: No acute distress. Heart: Regular rate and rhythm. No murmur. Lungs: Clear to auscultation bilaterally. No wheezes, rales, or rhonchi. Breathing is nonlabored. Abdomen: Soft, nontender, nondistended. PEG tube in place. Extremities: No lower extremity edema. Psych: Sleeping. Procedures None Urinary Catheter: No Vascular Central Line Catheter: No A/P Assessment and Plan 1. Severe sepsis secondary to pneumonia, UTI: Patient presented with fever, tachycardia. Urine culture growing gram-negative rods. Blood cultures are negative so far. Continue azithromycin, Rocephin. 2. FEN: Continue tube feeds with Jevity 1.5 at 45 mL per hour. Continue free water flushes, 120 mL every 4 hours. Nothing by mouth. 3. Constipation: Bowel regimen. 4. Profound intellectual disability: Reportedly at baseline. 5. DVT prophylaxis: SCDs. Sony Quiroz MD Mar 12, 2017 11:50
[2017-03-12 12:53] LABS: AUTOMATED NEUTROPHIL # 8.3 TH/MM3 (1.8-7.7); BASOPHIL % 0.2 % (0.0-2.0); HEMATOCRIT 31.2 % (35.0-46.0); LYMPH % 14.9 % (9.0-44.0); LYMPHOCYTE # 1.8 TH/MM3 (1.0-4.8); MEAN CELL VOLUME 108.1 FL (80.0-100.0); MEAN CORPUSCULAR HEMOGLOBIN 37.7 PG (27.0-34.0); MEAN CORPUSCULAR HGB CONC 34.9 % (32.0-36.0); MONO % 15.3 % (0.0-8.0); NEUT % 69.6 % (16.0-70.0); PLATELET COUNT 106 TH/MM3 (150-450); RED BLOOD COUNT 2.89 MIL/MM3 (4.00-5.30); RED CELL DISTRIBUTION WIDTH 13.7 % (11.6-17.2)
[2017-03-12 12:57] LABS: HEMO FLAGS AUTO DIFF
[2017-03-12 13:31] LABS: BANDS 19 % (0-6); METAMYELOCYTES 39 % (0-1); NEUTROPHIL # MANUAL DIFF 8.9 TH/MM3 (1.8-7.7); POLYS (SEG NEUTROPHILS) 16 % (16-70); WBC DIFF SAMPLE 100
[2017-03-12 13:32] LABS: TOXIC VACUOLATION PRESENT (NONE SEEN)
[2017-03-12 13:33] LABS: PLATELET ESTIMATE SMEAR LOW (NORMAL); PLATELET MORPHOLOGY NORMAL (NORMAL)
[2017-03-12 13:34] LABS: SCAN/DIFF FINAL DIFF MANUAL
[2017-03-13] VITALS (8 sets, daily range): BP systolic 87–106; BP diastolic 50–59; PULSE 78–120; RESP 20–21; TEMP 97.3–101.2; O2SAT 95–98
[2017-03-13] MEDS: AZITHROMYCIN INJ 500 MG in SODIUM CHLOR 0.9% 250 ML INJ 250 ML IV SCH (02:36)
[2017-03-13] MEDS: cefTRIAXone INJ 1,000 MG in SODIUM CHLORIDE 0.9% INJ 100 ML IV SCH (02:37)
[2017-03-13 07:26] LABS: AUTOMATED NEUTROPHIL # 5.9 TH/MM3 (1.8-7.7); BASOPHIL % 0.2 % (0.0-2.0); EOSINOPHIL % 0.1 % (0.0-4.0); HEMATOCRIT 29.7 % (35.0-46.0); HEMO FLAGS DIFF FINAL; LYMPH % 19.7 % (9.0-44.0); LYMPHOCYTE # 1.8 TH/MM3 (1.0-4.8); MEAN CELL VOLUME 107.6 FL (80.0-100.0); MEAN CORPUSCULAR HGB CONC 35.3 % (32.0-36.0); MONO % 14.7 % (0.0-8.0); NEUT % 65.3 % (16.0-70.0); PLATELET COUNT 104 TH/MM3 (150-450); RED BLOOD COUNT 2.76 MIL/MM3 (4.00-5.30); RED CELL DISTRIBUTION WIDTH 13.3 % (11.6-17.2); WHITE BLOOD COUNT 9.1 TH/MM3 (4.0-11.0)
[2017-03-13 07:54] LABS: BICARBONATE 29.8 MEQ/L (21.0-32.0); POTASSIUM 3.7 MEQ/L (3.5-5.1)
[2017-03-13] MEDS: SODIUM CHLORIDE 0.9% FLUSH 10 ML FLUSH IV FLUSH SCH ×2 (09:00→21:00)
[2017-03-13] MEDS: levOCARNitine 10% ORAL SOLN 118 ML BTL G-TUBE SCH ×3 (09:00→17:16)
[2017-03-13] MEDS: CLOBAZAM PO SCH ×2 (09:00→21:00)
[2017-03-13] MEDS: LEVONORGESTREL ETHINYL ESTRADIOL PO SCH (09:00)
[2017-03-13] MEDS: FERROUS SULFATE 300 MG /5ML UDC PO SCH (09:11)
[2017-03-13] MEDS: levETIRAcetam 500 MG/5 ML UDC PO SCH ×2 (09:11→22:11)
[2017-03-13] MEDS: DOCUSATE SODIUM 50 MG/SENNA 8.6 MG TAB PO SCH ×2 (09:12→22:12)
[2017-03-13] MEDS: lamoTRIgine 100 MG TAB PO SCH ×2 (09:12→22:11)
[2017-03-13] MEDS: SODIUM CHLORIDE 1 GRAM TAB PO SCH ×2 (09:12→22:12)
[2017-03-13] MEDS: FOLIC ACID 1 MG TAB PO SCH (09:12)
[2017-03-13] MEDS: FAMOTIDINE 20 MG TAB PO SCH (09:12)
[2017-03-13] MEDS: GLYCOPYRROLATE 1 MG TAB PO SCH ×2 (09:12→22:12)
[2017-03-13] MEDS: VALPROIC ACID SYRUP 250 MG/5 ML UDC G-TUBE SCH ×3 (09:12→17:32)
--- NOTE | 2017-03-13 12:06 | HHI.PR ---
Subjective Remarks Follow up pneumonia. Patient still requiring 4L oxygen. Mental status reportedly at baseline. Objective Vitals Vital Signs Date Time Temp Pulse Resp B/P (MAP) Pulse Ox O2 Delivery O2 Flow Rate FiO2 03/13/17 11:37 03/13/17 08:00 97.8 90 21 91/55 (67) 95 03/13/17 07:35 78 03/13/17 04:00 97.3 108 20 105/59 (74) 97 03/13/17 00:00 98.9 110 20 102/56 (71) 95 03/12/17 20:00 97.8 109 20 88/56 (67) 96 03/12/17 17:55 95 Nasal Cannula 4.00 03/12/17 16:00 105 03/12/17 16:00 99.0 108 20 110/55 (73) 95 I/O 03/12/17 03/12/17 03/12/17 03/13/17 03/13/17 03/13/17 07:00 15:00 23:00 07:00 15:00 23:00 Intake Total 1340 ml 1049 ml Output Total 120 ml 300 ml Balance 1220 ml 749 ml IV Total 1340 ml 1049 ml Output Urine Total 120 ml 300 ml # Voids 2 4 # Bowel Movements 0 0 # Sanitary Pads 1 Pads 1 Pads Result Diagram: 03/13/17 0655 03/13/17 0655 Imaging Last Impressions Chest X-Ray 03/12/17 0600 Signed Impressions: Service Date/Time: Sunday, March 12, 2017 05:31 - CONCLUSION: Left lower lobe airspace disease is identified. Tommy Herrmann MD Objective Remarks Examined with nurse present. General: No acute distress. Heart: Regular rate and rhythm. No murmur. Lungs: Clear to auscultation bilaterally. No wheezes, rales, or rhonchi. Breathing is nonlabored. Abdomen: Soft, nontender, nondistended. PEG tube in place. Extremities: No lower extremity edema. Psych: Awake, nonverbal. Procedures None Urinary Catheter: No Vascular Central Line Catheter: No A/P Assessment and Plan 1. Severe sepsis secondary to pneumonia, UTI: Patient presented with fever, tachycardia. Urine culture growing E coli (sensitive to Rocephin). Blood cultures are negative so far. Continue azithromycin, Rocephin. 2. FEN: Continue tube feeds with Jevity 1.5 at 45 mL per hour. Continue free water flushes, 120 mL every 4 hours. Nothing by mouth. 3. Constipation: Bowel regimen. 4. Profound intellectual disability: Reportedly at baseline. 5. DVT prophylaxis: SCDs. Sony Quiroz MD Mar 13, 2017 12:06
[2017-03-13] MEDS: SODIUM CHLOR 0.9% 1000 ML INJ 1,000 ML IV SCH (12:11)
[2017-03-13] MEDS: ACETAMINOPHEN 325 MG TAB PO PRN (22:37)
[2017-03-14] VITALS (8 sets, daily range): BP systolic 97–122; BP diastolic 59–70; PULSE 8–109; RESP 18–20; TEMP 97.8–98.7; O2SAT 90–99
[2017-03-14] MEDS: cefTRIAXone INJ 1,000 MG in SODIUM CHLORIDE 0.9% INJ 100 ML IV SCH (03:00)
[2017-03-14] MEDS: AZITHROMYCIN INJ 500 MG in SODIUM CHLOR 0.9% 250 ML INJ 250 ML IV SCH (04:51)
[2017-03-14] MEDS: SODIUM CHLOR 0.9% 1000 ML INJ 1,000 ML IV SCH ×2 (06:39→20:39)
[2017-03-14] MEDS: FAMOTIDINE 20 MG TAB PO SCH (08:26)
[2017-03-14] MEDS: SODIUM CHLORIDE 1 GRAM TAB PO SCH ×2 (08:26→20:24)
[2017-03-14] MEDS: FOLIC ACID 1 MG TAB PO SCH (08:26)
[2017-03-14] MEDS: lamoTRIgine 100 MG TAB PO SCH ×2 (08:26→20:24)
[2017-03-14] MEDS: GLYCOPYRROLATE 1 MG TAB PO SCH ×2 (08:26→20:24)
[2017-03-14] MEDS: levETIRAcetam 500 MG/5 ML UDC PO SCH ×2 (08:26→20:24)
[2017-03-14] MEDS: FERROUS SULFATE 300 MG /5ML UDC PO SCH (08:26)
[2017-03-14] MEDS: DOCUSATE SODIUM 50 MG/SENNA 8.6 MG TAB PO SCH ×2 (08:26→20:24)
[2017-03-14] MEDS: VALPROIC ACID SYRUP 250 MG/5 ML UDC G-TUBE SCH ×3 (08:26→18:00)
[2017-03-14] MEDS: levOCARNitine 10% ORAL SOLN 118 ML BTL G-TUBE SCH ×3 (08:27→18:00)
[2017-03-14] MEDS: SODIUM CHLORIDE 0.9% FLUSH 10 ML FLUSH IV FLUSH SCH ×2 (08:27→20:24)
[2017-03-14] MEDS: CLOBAZAM PO SCH ×2 (09:00→20:24)
[2017-03-14] MEDS: LEVONORGESTREL ETHINYL ESTRADIOL PO SCH (09:00)
[2017-03-15] VITALS (12 sets, daily range): BP systolic 87–138; BP diastolic 55–71; PULSE 81–98; RESP 16–20; TEMP 97.7–98.4; O2SAT 91–94
[2017-03-15] MEDS: cefTRIAXone INJ 1,000 MG in SODIUM CHLORIDE 0.9% INJ 100 ML IV SCH (02:47)
[2017-03-15] MEDS: AZITHROMYCIN INJ 500 MG in SODIUM CHLOR 0.9% 250 ML INJ 250 ML IV SCH (03:21)
[2017-03-15] MEDS: FOLIC ACID 1 MG TAB PO SCH (08:20)
[2017-03-15] MEDS: FERROUS SULFATE 300 MG /5ML UDC PO SCH (08:20)
[2017-03-15] MEDS: VALPROIC ACID SYRUP 250 MG/5 ML UDC G-TUBE SCH ×3 (08:20→18:00)
[2017-03-15] MEDS: FAMOTIDINE 20 MG TAB PO SCH (08:20)
[2017-03-15] MEDS: lamoTRIgine 100 MG TAB PO SCH ×2 (08:20→20:34)
[2017-03-15] MEDS: GLYCOPYRROLATE 1 MG TAB PO SCH ×2 (08:20→20:34)
[2017-03-15] MEDS: levETIRAcetam 500 MG/5 ML UDC PO SCH ×2 (08:20→20:33)
[2017-03-15] MEDS: SODIUM CHLORIDE 1 GRAM TAB PO SCH ×2 (08:20→20:34)
[2017-03-15] MEDS: CLOBAZAM PO SCH ×2 (08:21→20:33)
[2017-03-15] MEDS: DOCUSATE SODIUM 50 MG/SENNA 8.6 MG TAB PO SCH ×2 (08:21→20:34)
[2017-03-15] MEDS: levOCARNitine 10% ORAL SOLN 118 ML BTL G-TUBE SCH ×3 (08:21→18:00)
[2017-03-15] MEDS: SODIUM CHLORIDE 0.9% FLUSH 10 ML FLUSH IV FLUSH SCH ×2 (08:22→20:34)
[2017-03-15] MEDS: LEVONORGESTREL ETHINYL ESTRADIOL PO SCH (09:00)
[2017-03-15 11:57] LABS: AUTOMATED NEUTROPHIL # 2.1 TH/MM3 (1.8-7.7); BASOPHIL % 0.3 % (0.0-2.0); EOSINOPHIL # 0.1 TH/MM3 (0-0.4); EOSINOPHIL % 1.3 % (0.0-4.0); LYMPH % 39.4 % (9.0-44.0); LYMPHOCYTE # 2.1 TH/MM3 (1.0-4.8); MEAN CELL VOLUME 106.4 FL (80.0-100.0); MEAN CORPUSCULAR HEMOGLOBIN 36.9 PG (27.0-34.0); MEAN CORPUSCULAR HGB CONC 34.7 % (32.0-36.0); MONO % 19.2 % (0.0-8.0); NEUT % 39.8 % (16.0-70.0); PLATELET COUNT 219 TH/MM3 (150-450); RED BLOOD COUNT 3.01 MIL/MM3 (4.00-5.30); RED CELL DISTRIBUTION WIDTH 13.1 % (11.6-17.2); WHITE BLOOD COUNT 5.4 TH/MM3 (4.0-11.0)
[2017-03-15 12:11] LABS: HEMO FLAGS AUTO DIFF
[2017-03-15 12:16] LABS: BICARBONATE 28.1 MEQ/L (21.0-32.0); POTASSIUM 3.3 MEQ/L (3.5-5.1)
[2017-03-15 12:51] LABS: PLATELET ESTIMATE SMEAR NORMAL (NORMAL); PLATELET MORPHOLOGY ENLARGED (NORMAL); SCAN/DIFF AUTO DIFF CONFIRMED
[2017-03-15] MEDS ORDERED: POTASSIUM CHLORIDE 20 MEQ CONTROLLED RELEASE TAB PO ONE (13:15)
--- NOTE | 2017-03-15 13:20 | HHI.PR ---
Subjective Remarks Follow up pneumonia. Clinically improving. No events reported by nursing today. Objective Vitals Vital Signs Date Time Temp Pulse Resp B/P (MAP) Pulse Ox O2 Delivery O2 Flow Rate FiO2 03/15/17 08:01 98.2 90 20 87/56 (66) 94 03/15/17 04:25 98.4 98 18 88/66 (73) 92 03/15/17 03:58 93 03/15/17 00:48 92 03/14/17 23:44 98.7 95 18 101/63 (76) 93 03/14/17 20:02 90 03/14/17 19:56 Room Air 03/14/17 19:38 97.8 93 18 97/60 (72) 94 03/14/17 16:00 98.0 95 18 114/62 (79) 94 I/O 03/14/17 03/14/17 03/14/17 03/15/17 03/15/17 03/15/17 07:00 15:00 23:00 07:00 15:00 23:00 Intake Total 2003 ml 1000 ml 1393 ml Balance 2003 ml 1000 ml 1393 ml Intake Oral 0 ml IV Total 1088 ml 1000 ml 919 ml Tube Feeding 540 ml 474 ml Other 375 ml # Voids 4 6 6 # Bowel Movements 1 2 0 Result Diagram: 03/15/17 1115 03/15/17 1115 Imaging Last Impressions Chest X-Ray 03/12/17 0600 Signed Impressions: Service Date/Time: Sunday, March 12, 2017 05:31 - CONCLUSION: Left lower lobe airspace disease is identified. Tommy Herrmann MD Objective Remarks Examined with nurse present. General: No acute distress. Heart: Regular rate and rhythm. No murmur. Lungs: Clear to auscultation bilaterally. No wheezes, rales, or rhonchi. Breathing is nonlabored. Abdomen: Soft, nontender, nondistended. PEG tube in place. Extremities: No lower extremity edema. Psych: Awake, nonverbal. Procedures None Urinary Catheter: No Vascular Central Line Catheter: No A/P Assessment and Plan 1. Severe sepsis secondary to pneumonia, UTI: Patient presented with fever, tachycardia. Urine culture growing E coli (sensitive to Rocephin). Blood cultures are negative so far. Continue azithromycin, Rocephin. Improving. 2. FEN: Continue tube feeds with Jevity 1.5 at 45 mL per hour. Continue free water flushes, 120 mL every 4 hours. Nothing by mouth. 3. Constipation: Bowel regimen. 4. Profound intellectual disability: Reportedly at baseline. 5. Hypokalemia: Supplement potassium. 6. DVT prophylaxis: SCDs. Discharge Planning Possible discharge to [facility] next 1-2 days. Sony Quiroz MD Mar 15, 2017 13:20
[2017-03-15] MEDS ORDERED: POTASSIUM CHLORIDE 25 MEQ EFFERVESCENT TAB PEG ONE (13:30)
[2017-03-15] MEDS: NS + KCL 20 MEQ INJ 1,000 ML IV SCH (14:51)
[2017-03-16] VITALS (9 sets, daily range): BP systolic 99–105; BP diastolic 50–61; PULSE 71–96; RESP 16–20; TEMP 97–100; O2SAT 90–100
[2017-03-16] MEDS: cefTRIAXone INJ 1,000 MG in SODIUM CHLORIDE 0.9% INJ 100 ML IV SCH (03:05)
[2017-03-16] MEDS: AZITHROMYCIN INJ 500 MG in SODIUM CHLOR 0.9% 250 ML INJ 250 ML IV SCH (03:51)
[2017-03-16 08:50] LABS: BICARBONATE 29.9 MEQ/L (21.0-32.0); POTASSIUM 3.7 MEQ/L (3.5-5.1)
[2017-03-16] MEDS: CLOBAZAM PO SCH ×2 (09:00→22:20)
[2017-03-16] MEDS: LEVONORGESTREL ETHINYL ESTRADIOL PO SCH (09:00)
[2017-03-16] MEDS: SODIUM CHLORIDE 0.9% FLUSH 10 ML FLUSH IV FLUSH SCH ×2 (09:00→21:00)
[2017-03-16] MEDS: FOLIC ACID 1 MG TAB PO SCH (09:37)
[2017-03-16] MEDS: VALPROIC ACID SYRUP 250 MG/5 ML UDC G-TUBE SCH ×3 (09:37→18:01)
[2017-03-16] MEDS: FAMOTIDINE 20 MG TAB PO SCH (09:37)
[2017-03-16] MEDS: SODIUM CHLORIDE 1 GRAM TAB PO SCH ×2 (09:37→21:00)
[2017-03-16] MEDS: DOCUSATE SODIUM 50 MG/SENNA 8.6 MG TAB PO SCH ×2 (09:38→22:19)
[2017-03-16] MEDS: GLYCOPYRROLATE 1 MG TAB PO SCH ×2 (09:38→22:19)
[2017-03-16] MEDS: FERROUS SULFATE 300 MG /5ML UDC PO SCH (09:38)
[2017-03-16] MEDS: lamoTRIgine 100 MG TAB PO SCH ×2 (09:38→22:19)
[2017-03-16] MEDS: levOCARNitine 10% ORAL SOLN 118 ML BTL G-TUBE SCH ×3 (09:39→18:01)
[2017-03-16] MEDS: levETIRAcetam 500 MG/5 ML UDC PO SCH ×2 (09:48→22:19)
--- NOTE | 2017-03-16 14:14 | HHI.PR ---
Subjective Remarks Follow up pneumonia. Patient did have some bloody drainage from her nose today. Objective Vitals Vital Signs Date Time Temp Pulse Resp B/P (MAP) Pulse Ox O2 Delivery O2 Flow Rate FiO2 03/16/17 13:37 94 03/16/17 12:00 98.0 92 18 99/55 (70) 94 03/16/17 08:00 Room Air 03/16/17 08:00 97.0 92 18 102/61 (75) 92 03/16/17 08:00 90 03/16/17 03:45 92 03/16/17 03:34 98.6 94 16 105/58 (74) 92 03/15/17 23:55 97.8 93 16 138/66 (90) 91 03/15/17 22:43 95 03/15/17 20:40 Room Air 03/15/17 19:44 87 03/15/17 19:34 97.7 87 16 102/71 (81) 94 03/15/17 16:02 98.0 91 19 87/55 (66) 93 03/15/17 15:42 94 I/O 03/15/17 03/15/17 03/15/17 03/16/17 03/16/17 03/16/17 07:00 15:00 23:00 07:00 15:00 23:00 Intake Total 1393 ml 300 ml 840 ml 634 ml Balance 1393 ml 300 ml 840 ml 634 ml Intake Oral 0 ml 0 ml 0 ml IV Total 919 ml 300 ml 634 ml Tube Feeding 474 ml 540 ml Other 300 ml # Voids 6 5 5 # Bowel Movements 0 1 1 Result Diagram: 03/15/17 1115 03/16/17 0655 Imaging Last Impressions Chest X-Ray 03/12/17 06 Signed Impressions: Service Date/Time: Sunday, March 12, 2017 05:31 - CONCLUSION: Left lower lobe airspace disease is identified. Tommy Herrmann MD Objective Remarks Examined with nurse present. General: No acute distress. Heart: Regular rate and rhythm. No murmur. Lungs: Clear to auscultation bilaterally. No wheezes, rales, or rhonchi. Breathing is nonlabored. Abdomen: Soft, nontender, nondistended. PEG tube in place. Extremities: No lower extremity edema. Psych: Awake, nonverbal. Procedures None Urinary Catheter: No Vascular Central Line Catheter: No A/P Assessment and Plan 1. Severe sepsis secondary to pneumonia, UTI: Patient presented with fever, tachycardia. Urine culture growing E coli (sensitive to Rocephin). Blood cultures are negative. Continue azithromycin, Rocephin. Improving. 2. FEN: Continue tube feeds with Jevity 1.5 at 45 mL per hour. Continue free water flushes, 120 mL every 4 hours. Nothing by mouth. 3. Constipation: Bowel regimen. 4. Profound intellectual disability: Reportedly at baseline. 5. Hypokalemia: Improved. 6. DVT prophylaxis: SCDs. Discharge Planning Possible discharge to [facility] tomorrow. Sony Quiroz MD Mar 16, 2017 14:14
[2017-03-16] MEDS: NS + KCL 20 MEQ INJ 1,000 ML IV SCH (17:59)
[2017-03-16] MEDS: LACTULOSE SYRUP 20 GM/30 ML CUP PO SCH (17:59)
[2017-03-17] VITALS (11 sets, daily range): BP systolic 80–106; BP diastolic 42–69; PULSE 79–102; RESP 19–20; TEMP 97.6–98.7; O2SAT 92–95
[2017-03-17] MEDS: cefTRIAXone INJ 1,000 MG in SODIUM CHLORIDE 0.9% INJ 100 ML IV SCH (02:30)
[2017-03-17] MEDS: AZITHROMYCIN INJ 500 MG in SODIUM CHLOR 0.9% 250 ML INJ 250 ML IV SCH (02:34)
[2017-03-17] MEDS: DOCUSATE SODIUM 50 MG/SENNA 8.6 MG TAB PO SCH ×2 (10:17→21:00)
[2017-03-17] MEDS: FOLIC ACID 1 MG TAB PO SCH (10:17)
[2017-03-17] MEDS: GLYCOPYRROLATE 1 MG TAB PO SCH ×2 (10:17→21:49)
[2017-03-17] MEDS: FAMOTIDINE 20 MG TAB PO SCH (10:17)
[2017-03-17] MEDS: VALPROIC ACID SYRUP 250 MG/5 ML UDC G-TUBE SCH ×3 (10:17→18:58)
[2017-03-17] MEDS: CLOBAZAM PO SCH ×2 (10:17→21:49)
[2017-03-17] MEDS: levETIRAcetam 500 MG/5 ML UDC PO SCH ×2 (10:18→21:48)
[2017-03-17] MEDS: lamoTRIgine 100 MG TAB PO SCH ×2 (10:18→21:49)
[2017-03-17] MEDS: FERROUS SULFATE 300 MG /5ML UDC PO SCH (10:18)
[2017-03-17] MEDS: SODIUM CHLORIDE 1 GRAM TAB PO SCH ×2 (10:18→21:49)
[2017-03-17] MEDS: LACTULOSE SYRUP 20 GM/30 ML CUP PO SCH ×3 (10:18→18:57)
[2017-03-17] MEDS: levOCARNitine 10% ORAL SOLN 118 ML BTL G-TUBE SCH ×3 (10:19→18:58)
[2017-03-17] MEDS: SODIUM CHLORIDE 0.9% FLUSH 10 ML FLUSH IV FLUSH SCH ×2 (10:52→21:00)
--- NOTE | 2017-03-17 11:24 | HHI.PR ---
Subjective Remarks Follow up pneumonia. Patient had low-grade fever overnight. She also had low BP this morning. No other events reported by nursing. Objective Vitals Vital Signs Date Time Temp Pulse Resp B/P (MAP) Pulse Ox O2 Delivery O2 Flow Rate FiO2 03/17/17 10:45 105/58 (74) 03/17/17 08:07 97.6 91 19 80/42 (55) 92 03/17/17 04:24 102 20 95/51 (66) 93 03/17/17 04:03 99 03/17/17 00:00 91 20 106/69 (81) 03/16/17 23:42 87 03/16/17 22:30 Room Air 03/16/17 20:00 96 03/16/17 20:00 100.0 87 20 100/57 (71) 100 03/16/17 16:00 97.8 71 18 100/50 (67) 90 03/16/17 15:00 92 03/16/17 13:37 94 03/16/17 12:00 96 03/16/17 12:00 98.0 92 18 99/55 (70) 94 I/O 03/16/17 03/16/17 03/16/17 03/17/17 03/17/17 03/17/17 07:00 15:00 23:00 07:00 15:00 23:00 Intake Total 634 ml 1000 ml 534 ml 675 ml Balance 634 ml 1000 ml 534 ml 675 ml Intake Oral 0 ml 0 ml IV Total 634 ml 1000 ml 675 ml Tube Feeding 504 ml Tube Irrigant 30 ml # Voids 5 7 3 # Bowel Movements 1 0 1 Result Diagram: 03/15/17 1115 03/16/17 0655 Imaging Last Impressions Chest X-Ray 03/12/17 0600 Signed Impressions: Service Date/Time: Sunday, March 12, 2017 05:31 - CONCLUSION: Left lower lobe airspace disease is identified. Tommy Herrmann MD Objective Remarks Examined with nurse present. General: No acute distress. Heart: Regular rate and rhythm. No murmur. Lungs: Clear to auscultation bilaterally. No wheezes, rales, or rhonchi. Breathing is nonlabored. Abdomen: Soft, nontender, nondistended. PEG tube in place. Extremities: No lower extremity edema. Psych: Awake, nonverbal. Procedures None Urinary Catheter: No Vascular Central Line Catheter: No A/P Assessment and Plan 1. Severe sepsis secondary to pneumonia, UTI: Patient presented with fever, tachycardia. Urine culture growing E coli (sensitive to Rocephin). Blood cultures are negative. Continue azithromycin, Rocephin. Low-grade fever overnight, low BP today. Monitor BP closely. 2. FEN: Continue tube feeds with Jevity 1.5 at 45 mL per hour. Continue free water flushes, 120 mL every 4 hours. Nothing by mouth. 3. Constipation: Bowel regimen. 4. Profound intellectual disability: Reportedly at baseline. 5. Hypokalemia: Improved. 6. DVT prophylaxis: SCDs. Discharge Planning Possible discharge to [facility] tomorrow. Sony Quiroz MD Mar 17, 2017 11:24
[2017-03-17] MEDS: NS + KCL 20 MEQ INJ 1,000 ML IV SCH (15:12)
[2017-03-18] VITALS (8 sets, daily range): BP systolic 93–113; BP diastolic 53–71; PULSE 94–103; RESP 17–20; TEMP 98–98.6; O2SAT 93–98
[2017-03-18] MEDS: AZITHROMYCIN INJ 500 MG in SODIUM CHLOR 0.9% 250 ML INJ 250 ML IV SCH (02:55)
[2017-03-18] MEDS: cefTRIAXone INJ 1,000 MG in SODIUM CHLORIDE 0.9% INJ 100 ML IV SCH (02:56)
[2017-03-18] MEDS ORDERED: FOLI400T G-TUBE (08:06)
[2017-03-18] MEDS ORDERED: Albuterol-Ipratropium Neb NEB (08:06)
[2017-03-18] MEDS ORDERED: LACT10SO G-TUBE (08:06)
[2017-03-18] MEDS ORDERED: LEVE500S G-TUBE (08:06)
[2017-03-18] MEDS ORDERED: LAMI200T G-TUBE (08:06)
[2017-03-18] MEDS ORDERED: ONFI10TA G-TUBE (08:06)
[2017-03-18] MEDS ORDERED: FAMO40S G-TUBE (08:06)
[2017-03-18] MEDS ORDERED: VALP250 G-TUBE (08:06)
[2017-03-18] MEDS ORDERED: GLYC1TAB17 G-TUBE (08:06)
[2017-03-18] MEDS ORDERED: FERR300S G-TUBE (08:06)
[2017-03-18] MEDS ORDERED: [UNRECOGNIZED DRUG - CODE] G-TUBE (08:06)
[2017-03-18] MEDS ORDERED: CEFU1TAB18 G-TUBE (08:06)
[2017-03-18] MEDS ORDERED: SODI1TAB G-TUBE (08:06)
[2017-03-18] MEDS ORDERED: LEVO-85 G-TUBE (08:06)
--- NOTE | 2017-03-18 08:07 | HHI.DCPOC ---
Discharge Care Plan Diagnosis: (1) Pneumonia Your Health Problems Are: Difficulty with ADL Exercise Tolerance Goals to Promote Your Health * To prevent worsening of your condition and complications * To maintain your health at the optimal level Directions to Meet Your Goals Take your medications as prescribed Follow your dietary instruction Follow activity as directed Keep your appointments as scheduled Take your immunizations and boosters as scheduled If your symptoms worsen call your PCP, if no PCP go to Urgent Care Center or Emergency Room Smoking is Dangerous to Your Health. Avoid second hand smoke Call the 24-hour hour crisis hotline for domestic abuse at Cecil Edmondson MD Mar 18, 2017 08:07
[2017-03-18] MEDS: SODIUM CHLORIDE 0.9% FLUSH 10 ML FLUSH IV FLUSH SCH (09:00)
[2017-03-18] MEDS: DOCUSATE SODIUM 50 MG/SENNA 8.6 MG TAB PO SCH (09:00)
[2017-03-18] MEDS: lamoTRIgine 100 MG TAB PO SCH (09:43)
[2017-03-18] MEDS: GLYCOPYRROLATE 1 MG TAB PO SCH (09:44)
[2017-03-18] MEDS: FOLIC ACID 1 MG TAB PO SCH (09:44)
[2017-03-18] MEDS: SODIUM CHLORIDE 1 GRAM TAB PO SCH (09:44)
[2017-03-18] MEDS: levETIRAcetam 500 MG/5 ML UDC PO SCH (09:44)
[2017-03-18] MEDS: FAMOTIDINE 20 MG TAB PO SCH (09:44)
[2017-03-18] MEDS: LACTULOSE SYRUP 20 GM/30 ML CUP PO SCH ×2 (09:45→12:54)
[2017-03-18] MEDS: FERROUS SULFATE 300 MG /5ML UDC PO SCH (09:45)
[2017-03-18] MEDS: VALPROIC ACID SYRUP 250 MG/5 ML UDC G-TUBE SCH ×2 (09:46→12:54)
[2017-03-18] MEDS: levOCARNitine 10% ORAL SOLN 118 ML BTL G-TUBE SCH ×2 (09:47→12:54)
[2017-03-18] MEDS: CLOBAZAM PO SCH (09:50)
--- NOTE | 2017-03-18 12:11 | HHI.DS ---
Discharge Summary Admission Date Mar 11, 2017 at 03:03 Discharge Date: Mar 18, 2017 Admitting Diagnosis severe sepsis, pneumonia, UTI (1) Pneumonia ICD Code: J18.9 - Pneumonia, unspecified organism Status: Acute (2) Severe sepsis ICD Code: A41.9 - Sepsis, unspecified organism; R65.20 - Severe sepsis without septic shock Status: Acute (3) Urinary tract infection ICD Code: N39.0 - Urinary tract infection, site not specified Status: Acute Procedures None Brief History - From Admission 32 yo F with h/o developmental delay, This patient lives in a senior care. She is reportedly chronically nonverbal. She has a significant seizure disorder. She was brought to us tonight by EMS because of apparent respiratory distress. The patient is unable to give any history. The caregiver who came to ER with her came on duty at 11 PM last night. The caregiver reported seizure activity tonight before she came on duty. She states that this is not at all unusual for the patient. The caregiver states that she noticed that the patient was struggling to breathe. Rescue was called and the patient was brought to the hospital. Sats were reportedly in the 70s prior to the arrival of [facility]. The patient had already been placed on oxygen prior to the arrival of the back. CBC/BMP: 03/15/17 1115 03/16/17 0655 Significant Findings Laboratory Tests Test 03/16/17 06:55 Calcium Level 8.0 MG/DL (8.5-10.1) Imaging Last Impressions Chest X-Ray 03/12/17 0600 Signed Impressions: Service Date/Time: Sunday, March 12, 2017 05:31 - CONCLUSION: Left lower lobe airspace disease is identified. Tommy Herrmann MD PE at Discharge Examined with nurse present. General: No acute distress. Heart: Regular rate and rhythm. No murmur. Lungs: Clear to auscultation bilaterally. No wheezes, rales, or rhonchi. Breathing is nonlabored. Abdomen: Soft, nontender, nondistended. PEG tube in place. Extremities: No lower extremity edema. Psych: Awake, nonverbal. Hospital Course 1. Severe sepsis secondary to pneumonia, UTI: Patient presented with fever, tachycardia. Urine culture growing E coli (sensitive to Rocephin). Blood cultures are negative. Sepsis resolved with pt being afebrile and normal hemodynamics. Switch to ceftin s/p azithromycin and Rocephin. Rpt CXR 6 weeks 2. FEN: Continue tube feeds with Jevity 1.5 at 45 mL per hour. Continue free water flushes, 120 mL every 4 hours. Nothing by mouth. 3. Constipation: + BM ct Bowel regimen. 4. Profound intellectual disability: Reportedly at baseline. 5. Hypokalemia: Improved. 6. DVT prophylaxis: SCDs. Stable for dc Pt Condition on Discharge: Stable Discharge Disposition: Trnsfr to Other Facility Discharge Time: > 30 minutes Discharge Instructions DIET: Follow Instructions for: On Tube Feeding Activities you can perform: See Additionl Instruction Activities to Avoid: Driving Follow up Referrals: PCP Follow-up - 1 Week New Orders: X-RAY CHEST PA & LAT - 6 Weeks New Medications: Cefuroxime (Ceftin) 250 Mg Tab 500 MG G-TUBE BID for Infection, #16 TAB [Albuterol-Ipratropium Neb] () 1 AMPULE NEBU 1 AMPULE NEB Q4HR NEB PRN for sob/wheezing , #30 NEBULE Changed Medications: Clobazam (Onfi) 10 Mg Tab 15 MG G-TUBE BID for Control Seizures, #6 TAB (Changed from: PO) Docusate Sodium Liq (Docu Liq) 50 Mg/5 Ml Liq 100 MG G-TUBE DAILY for Prevent Constipation, #120 ML (Changed from: PO) Famotidine Liq (Pepcid Liq) 40 Mg/5 Ml Susp 20 MG G-TUBE DAILY for Manage Heartburn, #50 ML 0 Refills (Changed from: PO) Ferrous Sulfate Liq (Ferrous Sulfate Liq) 300 Mg/5 Ml Soln 300 MG G-TUBE DAILY for Nutritional Supplement, #150 ML 0 Refills (Changed from : PO) Folic Acid (Folic Acid) 0.4 Mg Tab 400 MCG G-TUBE DAILY for Nutritional Supplement, #60 TAB 0 Refills (Changed from : PO) Glycopyrrolate (Glycopyrrolate) 1 Mg Tab 1 MG G-TUBE BID for secretions, #60 TAB 0 Refills (Changed from: PO) Lactulose Liq (Lactulose Liq) 10 Gm/15 Ml Soln 45 ML G-TUBE TID for Prevent Constipation, #1000 ML 0 Refills (Changed from: PO) Lamotrigine (Lamictal) 200 Mg Tab 200 MG G-TUBE BID for Control Seizures, #60 TAB 0 Refills (Changed from: PO) Levetiracetam Liq (Keppra Liq) 500 Mg/5 Ml Soln 2000 MG G-TUBE BID for Control Seizures, #300 ML 0 Refills (Changed from: PO) Levonorgestrel-Ethinyl Estradiol (Ashlyna) 0.15-0.03-0.01 Mg Tab 1 TAB G-TUBE DAILY for Control, #91 TAB 0 Refills (Changed from: PO) Sodium Chloride (Sodium Chloride) 1 Gram Tab 1 GM G-TUBE BID for Electrolyte Replacement, #60 TAB 0 Refills (Changed from: PO ) Valproic Acid (Depakene) 250 Mg Cap 250 MG G-TUBE TID for Control Seizures, #90 CAP 0 Refills (Changed from: PO) Continued Medications: Levocarnitine (Metabolic Modif) Liq (Levocarnitine Liq) 1 Gm/10 Ml Soln 2 ML G-TUBE TID Cecil Edmondson MD Mar 18, 2017 12:11
[2017-03-18] MEDS: NS + KCL 20 MEQ INJ 1,000 ML IV SCH (12:42)
== END 2017-03-18 14:21 | DRG 871 ==
LOC: NEPC 00:55 → NEDA 03:03 → HCIS 05:28 → N04B 23:03
PROVIDERS: ADMIT Internal Medicine; ATTEND Internal Medicine
DX: A41.9 Sepsis, unspecified organism (principal); J18.9 Pneumonia, unspecified organism; F73 Profound intellectual disabilities; N39.0 Urinary tract infection, site not specified; R65.20 Severe sepsis without septic shock; K59.00 Constipation, unspecified; R62.50 Unspecified lack of expected normal physiological development in childhood; G40.909 Epilepsy, unspecified, not intractable, without status epilepticus; R06.03 Acute respiratory distress; F63.9 Impulse disorder, unspecified; E87.6 Hypokalemia; Z93.1 Gastrostomy status; B96.20 Unspecified Escherichia coli [E. coli] as the cause of diseases classified elsewhere
CPT/HCPCS: 71010; 80048; 80053; 81001; 82140; 82948; 83605; 83735; 85007; 85025; 85027; 87040; 87077; 87086; 87186; 94640; 94664; 96361; 96365; J0456; J0696; J3480; J7030; J7050; P9612